=== PATIENT | male | born 1970 | race Caucasian/White ===

== ENCOUNTER 2024-11-17 17:10 | Emergency (ER) | payer OTHER, SELFPAY ==
[2024-11-17] VITALS (7 sets, daily range): BP systolic 139–187; BP diastolic 81–132; BMI 29.7
[2024-11-17 17:33] LABS: % Basophils 0.6 % (0-2); % Immature Granulocytes 0.4 % (0-0.5); % Lymphocytes 26.1 % (20.5-51.1); % Monocytes 7.6 % (1.7-9.3); % Neutrophils 63.3 % (42.2-75.2); Absolute Basophils 0.1 10^3/uL (0-0.2); Absolute Eosinophils 0.3 10^3/uL (0-0.7); Absolute Immature Granulocytes 0.1 10^3/uL (0-0.05); Absolute Lymphocytes 3.3 10^3/uL (1.2-3.4); Hematocrit 45.1 % (39.0-52.0); Hemoglobin 15.4 g/dL (13.0-18.0); Mean Corp Hgb Conc. 34.1 g/dL (33.0-37.0); Mean Corpuscular Volume 87.7 fL (80.0-94.0); Mean Platelet Volume 8.4 fL (7.4-10.4); Nucleated Red Blood Cells % 0 % (-); Platelet Count 288 10^3/uL (130-400); Red Blood Cell Count 5.14 10^6/uL (4.70-6.10); Red Cell Dist. Width 12.8 % (11.5-14.5); White Blood Cell Count 12.6 10^3/uL (4.8-10.8)
[2024-11-17 17:45] LABS: ALT (SGPT) 23 U/L (0-50); AST (SGOT) 21 U/L (17-59); Albumin 4.4 g/dl (3.5-5.0); Alkaline Phosphatase 62 U/L (38-126); Blood Urea Nitrogen 14 mg/dl (9-20); Calcium 9.6 mg/dl (8.4-10.2); Carbon Dioxide 26 mmol/L (22-30); Chloride 108 mmol/L (98-107); Estimated Creatinine Clearance 106 ml/min; Glucose 112 mg/dl (70-99); Potassium 4.4 mmol/L (3.5-5.1); Sodium 142 mmol/L (135-145); Total Bilirubin 0.8 mg/dl (0.2-1.3); Total Protein 7.1 g/dl (6.3-8.2); eGFR > 60.00
[2024-11-17 17:46] LABS: APTT 35.8 Sec (23.4-35.0); INR 1.04; PT 13.9 Sec (11.4-14.6)
[2024-11-17 17:58] LABS: NT-proBNP 26.3 pg/ml; Troponin I < 0.012 ng/ml
[2024-11-17] MEDS: TRANDATE 10 MG IV (18:37)
--- NOTE | 2024-11-17 18:48 | ED.GENMED ---
History of Present Illness
General
Chief Complaint: Blood Pressure Problem
Time Seen by Provider: 11/17/24 17:47
History of Present Illness
History of Present Illness:
54-year-old male with history of polysubstance abuse and hypertension presenting to the emergency department chest wall pain and elevated blood pressure. Patient presents from correctional facility for high blood pressure. Patient has been
detoxing from multiple substances for the past 2 days, getting clonidine and clonazepam. Patient reports since detoxing, has been having chest wall pain, sharp and dull in quality. Denies known history of cardiac disease, however does report
family history of heart disease. Denies fever or cough. Denies abdominal pain or GI symptoms. Does report some chills. Denies additional acute medical complaints
Phy Exam
Physical Exam
Physical Exam:
General: Well-appearing, no clinical signs of dehydration, nontoxic and in no acute distress
HEENT: protecting airway
Neck: appears supple
CV: Normal heart rate, regular rhythm
Resp: No accessory muscle use, no increased work of breathing, lungs clear to auscultation bilaterally
Abd: Soft and non-distended, no tenderness to palpation
Extremities: No deformities, no swelling, no erythema, pulses and sensation intact
Neuro: alert, no focal neurologic deficit
: deferred
Rectal: deferred
Psych: Normal affect
Skin: Intact
Scores
COW Clinical Opiate Withdrawal Scale
Resting Pulse Rate: 81-100
Sweating-over past 30min not from room temp or activity: Reports chills or flushing
Restlessness-observation during assessment: Able to sit still
Pupil Size: Pupils pinned or normal size for room light
Bone or Joint Aches: Not present
Runny Nose or Tearing-not accounted for by cold/allergies: Not present
GI Upset-over last 30min: No GI Symptoms
Tremor-observation of outstretched hands: No tremor
Yawning-observation during assessment: No yawning
Anxiety or Irritability: None
Gooseflesh Skin: Skin is smooth
Score: 2
Withdrawal Severity: Minimal Withdrawal
Heart Score for Chest Pain Patients
STEMI patient?: No
History: Slightly or Non-Suspicious
ECG: Normal
Age: >45 - <65 years
Risk Factors: 1 or 2 Risk Factors
Troponin: </= Normal Limit
Heart Score for Chest Pain Patients: 2
Heart Score Risk: 2.5% MACE over next 6 weeks
Course
Orders/Labs/Results
Orders:
Orders
11/17/24 17:18
Electrocardiogram (*1) Urgent
Reason for Study: Chest Pain
EKG- Treatment ONCE
11/17/24 17:21
Complete Blood Count/With Diff Urgent
Comprehensive Metabolic Panel Urgent
NT-proBNP Urgent
PTT Urgent
Prothrombin Time Urgent
Troponin I Urgent
11/17/24 17:23
CXR2 [CR Chest - 2 Views ] Urgent
Comment:
Reason For Exam: shortness of breath
11/17/24 18:22
Labetalol HCl [Trandate] 10 mg IV NOW STA
Abnormal Lab Results
11/17/24
17:21
WBC 12.6 H 10^3/uL
(4.8-10.8)
Abs Immat Gran (auto) 0.1 H 10^3/uL
(0-0.05)
Absolute Neuts (auto) 8.0 H 10^3/uL
(1.4-6.5)
Absolute Monos (auto) 1.0 H 10^3/uL
(0.1-0.6)
APTT 35.8 H Sec
(23.4-35.0)
Chloride 108 H mmol/L
(98-107)
Glucose 112 H mg/dl
(70-99)
11/17/24 17:21
11/17/24 17:21
Vital Signs
Initial and Last Documented VS:
Initial Vital Signs
Temp Pulse Resp BP Pulse Ox
98.1 F 110 32 178/112 96
11/17/24 17:13 11/17/24 17:13 11/17/24 17:13 11/17/24 17:13 11/17/24 17:13
Last Documented Vital Signs
Temp Pulse Resp BP Pulse Ox
98.6 F 85 26 146/92 98
11/17/24 17:26 11/17/24 19:15 11/17/24 19:15 11/17/24 19:00 11/17/24 19:15
MDM/Problems Addressed
MDM/Problems Addressed:
54-year-old male with history of polysubstance abuse and hypertension presenting to the emergency department for chest wall pain and high blood. Vital signs on arrival significant for high blood pressure.
On exam, patient resting comfortably, no acute distress or discomfort. EKG obtained, not present concern for ACS. Suspect symptoms are underlying current in detox. Patient is detoxing from multiple substances for the past 2 days, which is when
symptoms started. Suspect hypertension from underlying known diagnosis as well as concomitant withdrawal. Plan for laboratory analysis including troponin. Will director of player personnel labetalol for blood pressure control. Will obtain chest x-ray imaging.
19:30 - Labs are unremarkable. Blood pressure has improved with 1 dose of labetalol. At this time feel that patient is stable for discharge with continued management of his withdrawal, likely source of his presenting high blood pressure. Return
precautions discussed and patient verbalized understanding.
*EKG
Interpreted by ED Provider?: Yes
EKG Intrepretation Date: 11/17/24
EKG Intrepretation Time: 18:57
Interpretation: normal
Comparison EKG: no comparison EKG present
Heart Rate: 106
Rate: tachycardiac
Rhythm: sinus
[place]: normal axis
Interval: normal interval
QRS Pattern: normal QRS
Ischemia: non-specific ST changes
*Critical Care Note
Total Time (30-74mins, 75-104mins- exclusive of procedures): Not Applicable
ED Attending Note
-
Portions of this chart may have been created with voice recognition software.� Occasional wrong word or��sound alike� substitutions may have occurred due to the inherent limitations of voice recognition software.
Discharge Plan
Departure
Prescriptions:
No Action
lisinopril 30 mg Tablet
30 mg PO DAILY
Interventions
Interventions:
*Risk Screen - Suicide Last Done: 11/17/24 17:16
*General Assessment Last Done: 11/17/24 17:16
*Neglect/Abuse Screening Last Done: 11/17/24 17:16
*ED- Fall Risk Assessment Last Done: 11/17/24 17:26
*ED COVID-19 Vaccine History Last Done: 11/17/24 17:26
ED- Cardiac Assessment Last Done: 11/17/24 17:26
ED- Neurological Assessment Last Done: 11/17/24 17:26
ED- Pulmonary Assessment Last Done: 11/17/24 17:26
Discharge Date and Time
Print Language: SAUDI ARABIAN
== END 2024-11-17 20:13 | disposition home or self-care (01) ==
LOC: EMR 17:10
PROVIDERS: EMERGENCY PHYSICIAN Student in an Organized Health Care Education/Training Program
DX: R07.89 Other chest pain (principal); F19.11 Other psychoactive substance abuse, in remission; I10 Essential (primary) hypertension; Z82.49 Family history of ischemic heart disease and other diseases of the circulatory system
CPT/HCPCS: 99283; 96374; 71046; 80053; 83880; 84484; 85025; 85610; 85730; 93005

== ENCOUNTER 2024-11-18 20:31 | Inpatient (IN) | payer OTHER, SELFPAY ==
[2024-11-18] VITALS (8 sets, daily range): BP systolic 159–187; BP diastolic 100–150; BMI 29.3
[2024-11-18 17:12] LABS: % Basophils 0.7 % (0-2); % Eosinophils 1.6 % (0-6); % Immature Granulocytes 0.3 % (0-0.5); % Monocytes 8.2 % (1.7-9.3); % Neutrophils 64.2 % (42.2-75.2); Absolute Basophils 0.1 10^3/uL (0-0.2); Absolute Eosinophils 0.2 10^3/uL (0-0.7); Absolute Lymphocytes 2.9 10^3/uL (1.2-3.4); Absolute Monocytes 0.9 10^3/uL (0.1-0.6); Absolute Neutrophils 7.3 10^3/uL (1.4-6.5); Hematocrit 45.8 % (39.0-52.0); Hemoglobin 15.7 g/dL (13.0-18.0); Mean Corp Hgb Conc. 34.3 g/dL (33.0-37.0); Mean Corpuscular Hgb 30.3 pg (27.0-31.0); Mean Corpuscular Volume 88.2 fL (80.0-94.0); Mean Platelet Volume 8.6 fL (7.4-10.4); Nucleated Red Blood Cells % 0 % (-); Platelet Count 314 10^3/uL (130-400); Red Blood Cell Count 5.19 10^6/uL (4.70-6.10); Red Cell Dist. Width 12.5 % (11.5-14.5); White Blood Cell Count 11.4 10^3/uL (4.8-10.8)
[2024-11-18 17:26] LABS: ALT (SGPT) 24 U/L (0-50); AST (SGOT) 20 U/L (17-59); Albumin 4.4 g/dl (3.5-5.0); Alkaline Phosphatase 54 U/L (38-126); Blood Urea Nitrogen 11 mg/dl (9-20); Calcium 10.2 mg/dl (8.4-10.2); Carbon Dioxide 30 mmol/L (22-30); Chloride 105 mmol/L (98-107); Glucose 102 mg/dl (70-99); Potassium 4.8 mmol/L (3.5-5.1); Sodium 142 mmol/L (135-145); Total Bilirubin 1.1 mg/dl (0.2-1.3); Total Protein 7.2 g/dl (6.3-8.2); eGFR > 60.00
[2024-11-18 17:35] LABS: Troponin I < 0.012 ng/ml
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
[2024-11-18] MEDS: NICODERM TRANSDERMAL 21 MG TRANSDERM (18:04)
[2024-11-18 18:27] LABS: Amphetamines Positive (Negative); Barbiturates Negative (Negative); Benzodiazepines Negative (Negative); Buprenorphine Negative (Negative); Cocaine Negative (Negative); Marijuana Negative (Negative); Methadone Negative (Negative); Methamphetamines Positive (Negative); Opiates Negative (Negative); Phencyclidine Negative (Negative); Tricyclic Antidepressants Negative (Negative)
[2024-11-18] MEDS: BELBUCA 300 MCG BUCCAL (18:48)
[2024-11-18 18:59] LABS: Fentanyl, Urine Negative (Negative)
[2024-11-18] MEDS: ASPIRIN 325 MG PO (19:47)
[2024-11-18] MEDS: ZANAFLEX 8 MG PO (19:47)
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
[2024-11-19] MEDS: OXYCONTIN (CONTROLLED RELEASE) 40 MG PO ×2 (00:09→08:41)
[2024-11-19] MEDS: BELBUCA 300 MCG BUCCAL ×6 (00:09→20:04)
[2024-11-19] MEDS: SEROQUEL 50 MG PO ×2 (00:09→21:54)
[2024-11-19 06:45] LABS: HDL Cholesterol 27 mg/dl; LDL Cholesterol, Calculated 72 mg/dl; Total Cholesterol 120 mg/dl (50-199); Triglyceride 105 mg/dl (10-149); Very Low Density Lipoprotein 21 mg/dl (0-30)
[2024-11-19 07:28] LABS: Erythrocyte Sed Rate 8 mm/hour (0-20)
[2024-11-19 07:39] VITALS: BP 149/93
[2024-11-19 08:22] LABS: Glycohemoglobin (HgbA1c) 5.8 % (4.0-5.6)
[2024-11-19] MEDS: SEROQUEL 25 MG PO (08:41)
[2024-11-19] MEDS: ZESTRIL 30 MG PO (08:41)
[2024-11-19] MEDS: CATAPRES 0.1 MG PO ×2 (08:42→20:04)
--- NOTE | 2024-11-19 10:05 | VATNOTE ---
Pt. states the IV access currently in left arm was placed in the Emergency department.
--- NOTE | 2024-11-19 11:59 | W.PN.HOSP.TC ---
Today's Communication/Plan
-
Oversedated
Reduce standing dose of oxycodone
Continue Suboxone taper
Continue current antihypertensive regimen including clonidine. Monitor for recurrent bradycardia.
Assessment / Plan
Assessment / Plan
Impression
54-year-old with history of opioid abuse and chronic back pain with degenerative disc disease and foraminal disease presents to the emergency department with uncontrolled hypertension and a headache, last use of fentanyl was 3 days ago. Suspicion
is for fentanyl withdrawal as well as hypertensive urgency. He has a fixed pinpoint to mid dilated left pupil. Right pupil is reactive normally to bilateral stimulation. CT of the head is negative. CT of the lumbar spine shows known degenerative
disc disease with foraminal narrowing. There is no bladder or bowel incontinence.
Suspected opiate withdrawal
Hypertensive urgency
Conditions prior to admission
Essential hypertension
Spinal stenosis with chronic pain pain
Polysubstance abuse, reported opiates (snorting heroin/fentanyl) amphetamines/methamphetamines, tobacco use
Plan:
Polysubstance abuse with suspected opiate withdrawal
Patient states snorting daily fentanyl and heroin.
Injured his knee enough urine drug screen positive for amphetamines and methamphetamines and negative for opiates including fentanyl.
Initiated on opiate withdrawal protocol with microdosing of Suboxone.
Currently oversedated.
Will reduce standing dose of oxycodone by 50% down to 20 mg every 8 hours.
Continue tapering Suboxone overlapping with decreasing dose of oxycodone.
Monitor for oversedation.
Continue clonidine
Essential hypertension
Suspected hypertensive urgency in the settings of withdrawal.
ECG normal sinus rhythm
Telemetry with intermittent sinus bradycardia resolving with activity
Resume lisinopril 30 mg daily.
Initiated on clonidine as a part of withdrawal protocol. Monitor for recurrent bradycardia.
Reported blurry vision upon admission.
Bilateral blurry vision with minimally reactive left eye. Reports normal vision in both eyes. Suspect retinal artery/vein disease in that eye. Cannot get MRI. He states he has metal shavings in both eyes.
No focal findings on exam
Clinically less likely TIA/CVA
CT head with no acute abnormalities
Overall improved with BP control.
Currently no indication for additional neurologic workup. Monitor closely.
Spinal degenerative disease - chronic. Suspect foraminal narrowing are chronic and patient does not want intervention by anyone except his selected ortho/senior quality methods specialist
- pain control
- pt eval
- no mri
Anticipated Discharge: 24 - 48 hours
Subjective/Interval History
-
Date of Service: November 19, 2024
Objective Data
-
Vital Signs:
Vital Signs
Temp Pulse Resp BP Pulse Ox
97.5 F 75 18 149/93 98
11/19/24 07:39 11/19/24 08:41 11/19/24 07:39 11/19/24 08:41 11/19/24 07:39
Physical Exam
-
General: Well Developed and No Apparent Distress
HEENT: Normocephalic, Atraumatic and Moist Mucous Membranes
Respiratory: Clear to Auscultation
Cardiac: Regular Rhythm and S1/S2; Negative Murmur, Rub or Gallop
GI: Soft, Nontender, Nondistended and Normal Bowel Sounds; Negative Organomegaly
Rectal: Deferred by Provider
Musculoskeletal: No Clubbing, No Cyanosis and No Edema
Skin: Negative Rash
Neuro: Nonfocal/Grossly Intact and Other (oversedated)
--- NOTE | 2024-11-19 14:49 | CM ---
Reviewed the chart notes. Patient from [facility]. CM continues to be available to patient/family and is monitoring medical plan for needs at discharge.
Plan: Discharge back to [facility] when medically stable.
[2024-11-19 15:55] VITALS: BP 133/82
[2024-11-19] MEDS: OXYCONTIN (CONTROLLED RELEASE) 20 MG PO (17:03)
[2024-11-19 19:30] VITALS: BP 119/83
[2024-11-19] MEDS: SUBUTEX 2 MG SL (21:55)
[2024-11-19 23:25] VITALS: BP 123/81
[2024-11-20] MEDS: OXYCONTIN (CONTROLLED RELEASE) 20 MG PO (00:03)
[2024-11-20 03:11] VITALS: BP 126/71
[2024-11-20 07:45] VITALS: BP 127/76
[2024-11-20] MEDS: SUBUTEX 2 MG SL ×3 (08:26→17:36)
[2024-11-20] MEDS: ZESTRIL 30 MG PO (08:26)
[2024-11-20] MEDS: SEROQUEL 25 MG PO (08:27)
[2024-11-20] MEDS: CATAPRES 0.1 MG PO ×2 (08:27→19:53)
[2024-11-20 11:00] VITALS: BP 112/77
--- NOTE | 2024-11-20 11:55 | CM ---
Addendum entered by Lidia Washington RN 11/21/24 14:15:
Call report to: [phone]
Original Note:
Reviewed the chart notes. CM continues to be available to patient/family and is monitoring medical plan for needs at discharge.
Plan: [facility]charge back to [facility] when medically stable.
[2024-11-20] MEDS: NICODERM TRANSDERMAL 21 MG TRANSDERM (13:31)
--- NOTE | 2024-11-20 14:25 | W.PN.HOSP.TC ---
Today's Communication/Plan
-
Continue opiate withdrawal protocol increasing Subutex dose gradually and reducing oxycodone
Should be completely off oxycodone by tomorrow afternoon
Plan is to discharge back to halfway on Subutex with further titration.
Assessment / Plan
Assessment / Plan
Impression
54-year-old with history of opioid abuse and chronic back pain with degenerative disc disease and foraminal disease presents to the emergency department with uncontrolled hypertension and a headache, last use of fentanyl was 3 days ago. Suspicion
is for fentanyl withdrawal as well as hypertensive urgency. He has a fixed pinpoint to mid dilated left pupil. Right pupil is reactive normally to bilateral stimulation. CT of the head is negative. CT of the lumbar spine shows known degenerative
disc disease with foraminal narrowing. There is no bladder or bowel incontinence.
Suspected opiate withdrawal
Hypertensive urgency
Conditions prior to admission
Essential hypertension
Spinal stenosis with chronic pain pain
Polysubstance abuse, reported opiates (snorting heroin/fentanyl) amphetamines/methamphetamines, tobacco use
Plan:
Polysubstance abuse with suspected opiate withdrawal
Patient states snorting daily fentanyl and heroin.
Injured his knee enough urine drug screen positive for amphetamines and methamphetamines and negative for opiates including fentanyl.
Initiated on opiate withdrawal protocol with microdosing of Suboxone.
Not sedated and without symptoms of opiate withdrawal today.
Continue opiate withdrawal protocol increasing Subutex dose gradually with reducing oxycodone.
Continue clonidine
Essential hypertension
Suspected hypertensive urgency in the settings of withdrawal.
ECG normal sinus rhythm
Telemetry with intermittent sinus bradycardia resolving with activity
Resume lisinopril 30 mg daily.
Initiated on clonidine as a part of withdrawal protocol. Monitor for recurrent bradycardia.
Reported blurry vision upon admission.
Bilateral blurry vision with minimally reactive left eye. Reports normal vision in both eyes. Suspect retinal artery/vein disease in that eye. Cannot get MRI. He states he has metal shavings in both eyes.
No focal findings on exam
Clinically less likely TIA/CVA
CT head with no acute abnormalities
Overall improved with BP control.
Currently no indication for additional neurologic workup. Monitor closely.
Spinal degenerative disease - chronic. 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
- pain control
- pt eval
- no mri
Anticipated Discharge: Within 24 hours
Subjective/Interval History
-
Date of Service: November 20, 2024
Objective Data
-
Vital Signs:
Vital Signs
Temp Pulse Resp BP Pulse Ox
98.3 F 109 16 112/77 95
11/20/24 11:00 11/20/24 11:00 11/20/24 11:00 11/20/24 11:00 11/20/24 11:00
Physical Exam
-
General: Well Developed and No Apparent Distress
HEENT: Normocephalic, Atraumatic and Moist Mucous Membranes
Respiratory: Clear to Auscultation
Cardiac: Regular Rhythm and S1/S2; Negative Murmur, Rub or Gallop
GI: Soft, Nontender, Nondistended and Normal Bowel Sounds; Negative Organomegaly
Rectal: Deferred by Provider
Musculoskeletal: No Clubbing, No Cyanosis and No Edema
Skin: Negative Rash
Neuro: Nonfocal/Grossly Intact and Other (oversedated)
[2024-11-20 15:12] VITALS: BP 121/73
[2024-11-20] MEDS: ROXICODONE 20 MG PO (15:18)
[2024-11-20 19:52] VITALS: BP 140/88
[2024-11-20] MEDS: SEROQUEL 50 MG PO (21:40)
[2024-11-20] MEDS: SUBUTEX 4 MG SL (21:40)
[2024-11-20 23:15] VITALS: BP 134/86
[2024-11-20] MEDS: OXYCONTIN (CONTROLLED RELEASE) 10 MG PO (23:26)
[2024-11-21 03:25] VITALS: BP 148/88
[2024-11-21 07:37] VITALS: BP 154/97
[2024-11-21] MEDS: CATAPRES 0.1 MG PO (07:55)
[2024-11-21] MEDS: SUBUTEX 4 MG SL ×2 (07:55→13:21)
[2024-11-21] MEDS: OXYCONTIN (CONTROLLED RELEASE) 10 MG PO (07:56)
[2024-11-21] MEDS: NICODERM TRANSDERMAL TRANSDERM ×2 (07:56→09:36)
[2024-11-21] MEDS: SEROQUEL 25 MG PO (07:56)
[2024-11-21] MEDS: NICODERM TRANSDERMAL 14 MG TRANSDERM (09:36)
[2024-11-21] MEDS: ZESTRIL 30 MG PO (09:36)
[2024-11-21 11:14] VITALS: BP 109/70
[2024-11-21 16:12] VITALS: BP 148/74
== END 2024-11-21 18:48 | DRG 897 ==
LOC: 2 NORTH 20:31
PROVIDERS: Student in an Organized Health Care Education/Training Program; ADMITTING PHYSICIAN Internal Medicine; ATTENDING PHYSICIAN Internal Medicine; EMERGENCY PHYSICIAN Emergency Medicine
DX: F11.13 Opioid abuse with withdrawal (principal); I16.0 Hypertensive urgency; I10 Essential (primary) hypertension; G89.29 Other chronic pain; F17.210 Nicotine dependence, cigarettes, uncomplicated; F15.90 Other stimulant use, unspecified, uncomplicated; M48.07 Spinal stenosis, lumbosacral region; M43.07 Spondylolysis, lumbosacral region; Z79.82 Long term (current) use of aspirin
CPT/HCPCS: 70450; 72131; 80053; 80061; 80306; 80307; 83036; 84484; 85025; 85652; 87070; 93005; 99291

== ENCOUNTER 2024-11-23 21:05 | Emergency (ER) | payer OTHER, SELFPAY ==
[2024-11-23 21:14] VITALS: BP 129/92
[2024-11-23 21:17] VITALS: BP 129/92; BMI 30.1
[2024-11-23 21:34] LABS: % Basophils 0.4 % (0-2); % Eosinophils 4.8 % (0-6); % Immature Granulocytes 0.3 % (0-0.5); % Lymphocytes 25.4 % (20.5-51.1); % Monocytes 10.4 % (1.7-9.3); % Neutrophils 58.7 % (42.2-75.2); Absolute Eosinophils 0.5 10^3/uL (0-0.7); Absolute Lymphocytes 2.9 10^3/uL (1.2-3.4); Absolute Monocytes 1.2 10^3/uL (0.1-0.6); Absolute Neutrophils 6.6 10^3/uL (1.4-6.5); Hematocrit 38.5 % (39.0-52.0); Hemoglobin 13.8 g/dL (13.0-18.0); Mean Corp Hgb Conc. 35.8 g/dL (33.0-37.0); Mean Corpuscular Hgb 30.9 pg (27.0-31.0); Mean Corpuscular Volume 86.1 fL (80.0-94.0); Mean Platelet Volume 8.8 fL (7.4-10.4); Nucleated Red Blood Cells % 0 % (-); Platelet Count 257 10^3/uL (130-400); Red Blood Cell Count 4.47 10^6/uL (4.70-6.10); Red Cell Dist. Width 12.1 % (11.5-14.5); White Blood Cell Count 11.2 10^3/uL (4.8-10.8)
[2024-11-23 21:55] LABS: ALT (SGPT) 22 U/L (0-50); AST (SGOT) 29 U/L (17-59); Alkaline Phosphatase 54 U/L (38-126); Blood Urea Nitrogen 26 mg/dl (9-20); Calcium 9.5 mg/dl (8.4-10.2); Carbon Dioxide 27 mmol/L (22-30); Chloride 100 mmol/L (98-107); Estimated Creatinine Clearance 95 ml/min; Glucose 108 mg/dl (70-99); Potassium 4.6 mmol/L (3.5-5.1); Sodium 136 mmol/L (135-145); Total Protein 6.7 g/dl (6.3-8.2); eGFR > 60.00
[2024-11-23 21:57] LABS: Troponin I < 0.012 ng/ml
[2024-11-23 22:00] VITALS: BP 167/86
[2024-11-23 23:00] VITALS: BP 147/90
--- NOTE | 2024-11-23 23:41 | ED.GENMED ---
History of Present Illness
General
Chief Complaint: Chest Pain
Source: patient, records and police
Exam Limitations: none
Time Seen by Provider: 11/23/24 21:17
Nursing documentation reviewed up to this point in time: agreed with
History of Present Illness
History of Present Illness:
54-year-old male with a past medical history of hypertension, smoker, history of substance use, chronic back pain who presents to the emergency department from [facility] for evaluation of chest pain. Of note patient was
admitted to the hospital 11/18 until 11/21�he presented with hypertension and opioid withdrawal, was treated with Suboxone for opioid withdrawal and was treated with lisinopril and clonidine for blood pressure control. Patient says that
intermittently he has been having chest pains and that today he had a more intense episode which prompted referral to the ER. He says he was sitting in his cell when suddenly began to feel sweaty and had an intense pressure in his chest associated
with sensation of palpitations. He says he felt very short of breath. He says he called for CO who escorted him to the nurse and there he was found to be severely hypertensive. He was referred to the ER for assessment. He says that symptoms have
improved but not completely resolved, total duration few hours. He denies any known cardiac history.
Past History
Past History
ED Past Medical History: HTN and Other (Chronic low back pain)
ED Past Surgical History: Other
Social History
Tobacco: Smoker
Alcohol: Occasional
Drug: Other (Methamphetamine, fentanyl)
Personal: Other
Living: residential
Employment: Other
Family History
Family History: Other
Review of Systems
Review of Systems
All Other Systems: ROS reviewed and negative except as documented in HPI and ROS
Constitutional: Denies fever
Respiratory: Reports trouble breathing; Denies cough
Cardiac: Reports chest pain, diaphoresis and palpitations
ABD/GI: Denies abdominal pain, nausea or vomiting
Musculoskeletal: Denies edema
Phy Exam
Physical Exam
Physical Exam:
General: Awake, alert, oriented x3; no acute distress
Head: Normocephalic, atraumatic
Eyes: Conjunctiva normal, sclera anicteric
Throat: Airway intact, handling secretions
Neck: Trachea midline, no JVD
Lungs: Clear to auscultation bilaterally, no wheezing, rales, rhonchi
Heart: Regular rate and rhythm, no murmurs, gallops, or rubs
Abd: Soft, non distended, nontender
Neuro: No gross deficit
Extremities: No edema in extremities, equal pulses in all extremities
Scores
Heart Failure Risk
Heart Failure Risk Score: Not Applicable
Heart Score for Chest Pain Patients
STEMI patient?: No
History: Slightly or Non-Suspicious
ECG: Nonspecific Repolarization
Age: >45 - <65 years
Risk Factors: >/= 3 Risk Factors or History of CAD
Troponin: </= Normal Limit
Heart Score for Chest Pain Patients: 4
Heart Score Risk: 20.3% MACE over next 6 weeks
Withdrawal Assessment of Alcohol
Withdrawal Assessment Completed?: Not applicable
Course
Orders/Labs/Results
Orders:
Orders
11/23/24 21:09
Electrocardiogram (*1) Urgent
Reason for Study: Chest Pain
Cardiac Monitoring- Treatment ONCE
EKG- Treatment ONCE
IV Insert/Care/Rem.- Treatment PRN
Pulse Ox/spot Check [RESP] Urgent
Quantity: 1
Special Instructions: ON ROOM AIR
11/23/24 21:28
Complete Blood Count/With Diff Urgent
Comprehensive Metabolic Panel Urgent
Troponin I Urgent
11/24/24 00:[address]
Ct Chest/Abd/Pel Angio W/Wo Iv Urgent
Reason For Exam: sudden chest pain, hypertension
11/24/24 00:24
Troponin I Urgent
11/24/24 01:08
Electrocardiogram (*1) Urgent
Reason for Study: Chest Pain
EKG- Treatment ONCE
Abnormal Lab Results
11/23/24
21:28
WBC 11.2 H 10^3/uL
(4.8-10.8)
RBC 4.47 L 10^6/uL
(4.70-6.10)
Hct 38.5 L %
(39.0-52.0)
Absolute Neuts (auto) 6.6 H 10^3/uL
(1.4-6.5)
Absolute Monos (auto) 1.2 H 10^3/uL
(0.1-0.6)
Monocytes % 10.4 H %
(1.7-9.3)
BUN 26 H mg/dl
(9-20)
Glucose 108 H mg/dl
(70-99)
11/23/24 21:28
11/23/24 21:28
Vital Signs
Initial and Last Documented VS:
Initial Vital Signs
BP
129/92
11/23/24 21:14
Last Documented Vital Signs
Temp Pulse Resp BP Pulse Ox
37.2 C 93 12 141/83 93
11/23/24 21:17 11/24/24 01:15 11/24/24 01:15 11/24/24 01:08 11/24/24 01:15
MDM/Problems Addressed
Differential Diagnosis Includes:
ACS/angina, GERD, dysrhythmia; pneumothorax less likely, PE less likely, aortic dissection less likely
MDM/Problems Addressed:
54-year-old male presents for evaluation of chest pain which started at rest and lasted for few hours, was associated with shortness of breath, diaphoresis, palpitations. He did have recent admission for poorly controlled hypertension. He says his
blood pressure was over 200 earlier today; blood pressure normal here. Heart rate in the 90s, rest of vitals normal. His EKG shows no sinus rhythm. He does have some inferior and lateral T wave abnormalities�may be slightly more pronounced than
prior but generally morphology appears somewhat similar. He had lab work sent in triage including a CBC and a CMP which showed no clinically significant abnormalities. Initial troponin undetectable. With sudden onset and associated poorly
controlled hypertension we will check CT angio dissection study. Repeat EKG and troponin. Reassess after the above.
CT angio chest/abdomen/pelvis shows no dissection or PE or other acute abnormalities. Repeat troponin undetectable and with consistent symptoms this is sufficient to rule out acute ID. Symptoms nonexertional do not sound consistent with angina and
again consistent symptoms with undetectable troponins goes against cardiac chest pain. No changes on serial repeat EKG. Patient's vitals have been stable throughout ED visit. At this point no clear emergent pathology, think patient is stable for
discharge. Will have him follow-up with cardiology expeditiously as an outpatient for full assessment in an abundance of caution as he does have cardiac risk factors and incidentally noted atherosclerosis on CT chest. Discussed with patient
results and follow-up plan. Provided copy of CT for follow-up. I spoke to the residential medical staff directly to ensure that they facilitate follow-up. All questions answered.
Chronic conditions affecting care:
Hypertension, smoker
*Pulse Oximetry
Patient hypoxic: no
*EKG
Interpreted by ED Provider?: Yes
Comparison EKG: changes noted
Heart Rate: 101
Rate: tachycardiac
Rhythm: sinus
[place]: normal axis
Interval: normal interval
QRS Pattern: normal QRS
Ischemia: T-wave inversion
*Critical Care Note
Total Time (30-74mins, 75-104mins- exclusive of procedures): Not Applicable
Data Reviewed
Review of Other/Old Records Reveals: Labs and Records
Source: patient
Patient Management
Discussion with other providers: Assisted staff (Discussed directly with residential medical staff)
ED Attending Note
-
Portions of this chart may have been created with voice recognition software.� Occasional wrong word or��sound alike� substitutions may have occurred due to the inherent limitations of voice recognition software.
Discharge Plan
Departure
Patient Disposition: Home (Routine Discharge)
Date of Disposition: 11/24/24
Time of Disposition: 01:29
Patient with high blood pressure during this ER visit?: Yes
Discharge Problem:
Chest pain
Instructions: Chest Pain CBC Follow Up
Prescriptions:
No Action
lisinopril 30 mg Tablet
30 mg PO DAILY
quetiapine [Seroquel] 25 mg Tablet
25 mg PO DAILY
ondansetron HCl 4 mg Tablet
4 mg PO TIDPRN PRN (Reason: nausea)
loperamide 2 mg Tablet
2 mg PO TIDPRN PRN (Reason: diarrhea)
therapeutic multivitamin Tablet
1 tab PO DAILY
quetiapine [Seroquel] 50 mg Tablet
50 mg PO HS
buprenorphine HCl 8 mg Tablet, Sublingual
8 mg sublingual BID@0800,2000 Qty: 10 0RF
polyethylene glycol 3350 17 gram Powder In Packet
17 g PO DAILY PRN (Reason: constipation)
diphenhydramine HCl [Benadryl] 25 mg Capsule
25 mg PO BID
calcium carbonate [Calcium Antacid] 200 mg calcium (500 mg) Tablet,Chewable
1,000 mg PO BID
docusate sodium 100 mg Capsule
100 mg PO BID PRN (Reason: constipation)
Referrals:
[facility] [Family Provider] -
Bhupendra Faust MD [Active] - Call in 1-3 days for appt
Activity Restrictions/Additional Instructions:
You had multiple incidental findings on your CT and should follow-up with your primary doctor regarding these things. You have been referred to cardiology for full cardiac assessment after your ER visit. You should follow-up within the next week.
If you have any return of symptoms or worsening symptoms you should return to the ER to be reassessed.
Interventions
Interventions:
*Risk Screen - Suicide Last Done: 11/23/24 21:17
*General Assessment Last Done: 11/23/24 21:17
*Neglect/Abuse Screening Last Done: 11/23/24 21:17
*ED- Fall Risk Assessment Last Done: 11/23/24 21:17
*ED COVID-19 Vaccine History Last Done: 11/23/24 21:17
ED- Cardiac Assessment Last Done: 11/23/24 21:47
ED- Pulmonary Assessment Last Done: 11/23/24 21:47
Discharge Date and Time
Print Language: MALAY
[2024-11-24] VITALS: BP 133/75
[2024-11-24 00:59] LABS: Troponin I < 0.012 ng/ml
[2024-11-24 01:06] VITALS: BP 141/83
[2024-11-24 01:08] VITALS: BP 141/83
== END 2024-11-24 01:59 | disposition home or self-care (01) ==
LOC: EMR 21:05
PROVIDERS: EMERGENCY PHYSICIAN Emergency Medicine
DX: R07.89 Other chest pain (principal); I10 Essential (primary) hypertension; F17.200 Nicotine dependence, unspecified, uncomplicated
CPT/HCPCS: 99285; 71275; 74174; 80053; 84484; 85025; 93005; Q9967

== ENCOUNTER → 2025-01-01 06:41 | Outpatient (REF) | payer OTHER, SELFPAY ==
[2025-01-01] MEDS: LEXISCAN 0.4 MG IV (08:28)
[2025-01-01] MEDS: FLUSH (NSS) 1 FLUSH IV (08:28)
== END ==
LOC: RCS 06:41
PROVIDERS: ATTENDING PHYSICIAN Internal Medicine Cardiovascular Disease; FAMILY PHYSICIAN General Practice
DX: R07.89 Other chest pain (principal)
CPT/HCPCS: 78452; 93017; A9500; J2785

== ENCOUNTER 2025-02-07 06:07 | Observation (INO) | payer OTHER, SELFPAY ==
[2025-02-06 23:27] VITALS: BP 94/70
[2025-02-06 23:30] VITALS: BMI 30.2
[2025-02-06 23:36] VITALS: BP 104/80
[2025-02-06 23:52] LABS: Hematocrit 34.1 % (39.0-52.0); Hemoglobin 12.1 g/dL (13.0-18.0); Mean Corp Hgb Conc. 35.5 g/dL (33.0-37.0); Mean Corpuscular Volume 86.1 fL (80.0-94.0); Nucleated Red Blood Cells % 0 % (-); Platelet Count 275 10^3/uL (130-400); Red Cell Dist. Width 12.5 % (11.5-14.5)
[2025-02-06 23:57] VITALS: BP 89/67
[2025-02-07] VITALS (12 sets, daily range): BP systolic 90–150; BP diastolic 60–87; BMI 29.2
[2025-02-07 00:19] LABS: ALT (SGPT) 28 U/L (0-50); AST (SGOT) 26 U/L (17-59); Albumin 4.3 g/dl (3.5-5.0); Alkaline Phosphatase 59 U/L (38-126); Blood Urea Nitrogen 17 mg/dl (9-20); Calcium 9.7 mg/dl (8.4-10.2); Carbon Dioxide 27 mmol/L (22-30); Chloride 106 mmol/L (98-107); Estimated Creatinine Clearance 77 ml/min; Glucose 158 mg/dl (70-99); Potassium 4.1 mmol/L (3.5-5.1); Sodium 136 mmol/L (135-145); Total Protein 6.9 g/dl (6.3-8.2); eGFR > 60.00
[2025-02-07 00:32] LABS: Troponin I < 0.012 ng/ml
--- NOTE | 2025-02-07 01:32 | ED.GENMED ---
History of Present Illness
General
Chief Complaint: Chest Pain
Source: patient and records
Exam Limitations: none
Time Seen by Provider: 02/07/25 01:22
Nursing documentation reviewed up to this point in time: agreed with
History of Present Illness
History of Present Illness:
54-year-old male with a past medical history of hypertension, GERD, polysubstance use on buprenorphine who presents to the emergency room from [facility] for evaluation of chest pain. Patient reports acute onset of chest
pain this evening about 20 minutes prior to arrival while at rest. He reports an intense pressure sensation in the chest radiated towards the left side as well as some pain in the low back. He reports some mild associated shortness of breath. He
denies any nausea, vomiting, diaphoresis. He denies any abdominal pain. He says he was in his normal state of health prior to onset. EMS was called to the scene and per EMS report patient was severely hypertensive with a blood pressure over 200
and heart rate in the 110s. EKG showed sinus rhythm with no STEMI. I did review EKG from senior care and that did seem to show some lateral ST depressions. He was given a total of 3 sublingual nitroglycerin tabs with improvement in blood pressure and
resolution of pain. He was also given 324 mg of aspirin. He did apparently have some transient hypoxia which seems to have resolved. Transported to the emergency room. Here in the ER he says he is currently chest pain-free still has some mild
back pain. He says he has never had similar symptoms in the past and has no cardiac history to his knowledge.
Past History
Past History
ED Past Medical History: HTN and Other (Chronic low back pain)
ED Past Surgical History: Other
Social History
Tobacco: Smoker
Alcohol: Occasional
Drug: Other (Methamphetamine, fentanyl)
Personal: Other
Living: senior care
Employment: Other
Family History
Family History: Other
Review of Systems
Review of Systems
All Other Systems: ROS reviewed and negative except as documented in HPI and ROS
Constitutional: Denies fever
Respiratory: Reports trouble breathing
Cardiac: Reports chest pain; Denies diaphoresis or palpitations
ABD/GI: Denies abdominal pain, nausea or vomiting
: Denies flank pain
Musculoskeletal: Reports back pain; Denies neck pain
Neurological: Denies dizzy or headache
Phy Exam
Physical Exam
Physical Exam:
General: Awake, alert, oriented x3; no acute distress, resting comfortably in bed
Head: Normocephalic, atraumatic
Eyes: Conjunctiva normal, sclera anicteric
Throat: Airway intact, handling secretions
Neck: Trachea midline, no JVD
Lungs: Clear to auscultation bilaterally, no wheezing, rales, rhonchi
Heart: Regular rate and rhythm, no murmurs, gallops, or rubs�triage tachycardia resolved by my assessment
Abd: Soft, non distended, nontender
Neuro: No gross deficits
Skin: no rash
Extremities: No edema in extremities, no calf tenderness, equal pulses in all extremities
Scores
Heart Failure Risk
Heart Failure Risk Score: Not Applicable
Heart Score for Chest Pain Patients
STEMI patient?: No
History: Moderately Suspicious
ECG: Significant ST-Depression
Age: >45 - <65 years
Risk Factors: >/= 3 Risk Factors or History of CAD
Troponin: </= Normal Limit
Heart Score for Chest Pain Patients: 6
Heart Score Risk: 20.3% MACE over next 6 weeks
Withdrawal Assessment of Alcohol
Withdrawal Assessment Completed?: Not applicable
Course
Orders/Labs/Results
Orders:
Orders
02/06/25 23:22
Electrocardiogram (*1) Urgent
Reason for Study: Chest Pain
Cardiac Monitoring- Treatment ONCE
EKG- Treatment ONCE
IV Insert/Care/Rem.- Treatment PRN
O2 Therapy [RESP] Urgent
Titrate/Wean O2 to maintain O2 sat greater than (%): 90
Special Instructions: Maintain sats >/=90%
Pulse Ox/spot Check [RESP] Urgent
Quantity: 1
Special Instructions: ON ROOM AIR
02/06/25 23:45
BNP [NT-proBNP] Urgent
Complete Blood Count/With Diff Urgent
Comprehensive Metabolic Panel Urgent
Troponin I Urgent
02/07/25 01:24
CT Chest/abd/pelvis Angio W/wo Urgent
Comment:
Reason For Exam: severe HTN and chest pain
02/07/25 02:25
Troponin I Urgent
Abnormal Lab Results
02/06/25
23:45
RBC 3.96 L 10^6/uL
(4.70-6.10)
Hgb 12.1 L g/dL
(13.0-18.0)
Hct 34.1 L %
(39.0-52.0)
Abs Immat Gran (auto) 0.1 H 10^3/uL
(0-0.05)
Absolute Monos (auto) 0.7 H 10^3/uL
(0.1-0.6)
Immature Gran % 0.9 H %
(0-0.5)
Eosinophils % 8.5 H %
(0-6)
Glucose 158 H mg/dl
(70-99)
02/06/25 23:45
02/06/25 23:45
Vital Signs
Initial and Last Documented VS:
Initial Vital Signs
Pulse Resp BP Pulse Ox
111 14 94/70 97
02/06/25 23:27 02/06/25 23:27 02/06/25 23:27 02/06/25 23:27
Last Documented Vital Signs
Temp Pulse Resp BP Pulse Ox
36.6 C 75 14 109/72 94
02/06/25 23:40 02/07/25 03:15 02/07/25 03:15 02/07/25 03:02 02/07/25 03:15
MDM/Problems Addressed
Differential Diagnosis Includes:
ACS, aortic dissection, PE, GERD, costochondritis
MDM/Problems Addressed:
54-year-old male with history as noted presents for evaluation after an episode of acute onset chest pain associated with low back pain. Had associated severe hypertension and was treated with nitroglycerin and given a baby aspirin in the field.
Symptoms have resolved for the most part. His blood pressure is actually on the low side now 90s over 70s in triage. He had some tachycardia in triage which has normalized by my assessment, rest of vitals normal�apparently had some hypoxia for EMS
but is not hypoxic here. Physical exam is as above. His EKG here shows some inferior T wave inversions with some subtle ST depressions new compared to prior. He had blood work in triage including a CBC which was unremarkable and a CMP which
showed some mild hyperglycemia. His troponin was undetectable and he has normal proBNP. Given acute onset of symptoms with severe hypertension and back pain as well I think it would be appropriate to rule this patient out for aortic dissection
although certainly based on his clinical appearance I think this is less likely�will send for a CT angio of the chest/abdomen/pelvis. Will need to trend his troponins. He did have a nuclear stress test in December of this year that was normal. Will
monitor closely reassess after the above.
Repeat troponin was negative. CT angio of the chest/abdomen/pelvis reviewed and shows no signs of aortic dissection however he does have CAD with some mild cardiomegaly and there was some hypoattenuation in the myocardium which could reflect
myocardial infarction in the setting of chest pain. His troponins are negative but especially in light of EKG changes I do think it would be appropriate to observe overnight and trend troponins. Will start heparin empirically based on CT findings
pending trending of troponins. Fortunately he remains chest pain-free. Case discussed with hospitalist for admission.
Chronic conditions affecting care:
Hypertension
*Radiology
Radiology exam reviewed: radiology read reviewed
*Pulse Oximetry
SaO2: 93
Oxygen Mode of Delivery: Room air
Patient hypoxic: no (93%)
*EKG
Interpreted by ED Provider?: Yes
Comparison EKG: changes noted
Heart Rate: 104
Rate: tachycardiac
Rhythm: sinus tachycardia
[place]: normal axis
Interval: normal interval
QRS Pattern: normal QRS
Ischemia: non-specific ST changes
*Critical Care Note
Total Time (30-74mins, 75-104mins- exclusive of procedures): Not Applicable
Data Reviewed
Review of Other/Old Records Reveals: Labs, Records and Testing
Source: patient, records (Reviewed medical records from senior care and prior visits) and police
Patient Management
Discussion with other providers: Hospitalist (Discussed with hospitalist)
Escalation/DeEscalation of care consider admission/obs:
Admission indicated
ED Attending Note
-
Portions of this chart may have been created with voice recognition software.� Occasional wrong word or��sound alike� substitutions may have occurred due to the inherent limitations of voice recognition software.
Discharge Plan
Departure
Patient Disposition: Admit
Date of Disposition: 02/07/25
Time of Disposition: 04:00
Admit to doctor: Guy
Presentation/result/management discussed w/ accepting MD/DO: Hospitalist
Discharge Problem:
Chest pain
Prescriptions:
No Action
lisinopril 30 mg Tablet
30 mg PO DAILY
quetiapine [Seroquel] 25 mg Tablet
25 mg PO DAILY
ondansetron HCl 4 mg Tablet
4 mg PO TIDPRN PRN (Reason: nausea)
loperamide 2 mg Tablet
2 mg PO TIDPRN PRN (Reason: diarrhea)
therapeutic multivitamin Tablet
1 tab PO DAILY
quetiapine [Seroquel] 50 mg Tablet
50 mg PO HS
buprenorphine HCl 8 mg Tablet, Sublingual
8 mg sublingual BID@0800,2000 Qty: 10 0RF
polyethylene glycol 3350 17 gram Powder In Packet
17 g PO DAILY PRN (Reason: constipation)
diphenhydramine HCl [Benadryl] 25 mg Capsule
25 mg PO BID
calcium carbonate [Calcium Antacid] 200 mg calcium (500 mg) Tablet,Chewable
1,000 mg PO BID
docusate sodium 100 mg Capsule
100 mg PO BID PRN (Reason: constipation)
Referrals:
UNKNOWN - PT DOES,NOT KNOW [Family Provider]
Interventions
Interventions:
*Risk Screen - Suicide Last Done: 02/06/25 23:39
*General Assessment Last Done: 02/06/25 23:39
*Neglect/Abuse Screening Last Done: 02/06/25 23:39
*ED- Fall Risk Assessment Last Done: 02/06/25 23:39
*ED COVID-19 Vaccine History Last Done: 02/06/25 23:39
ED- Cardiac Assessment Last Done: 02/06/25 23:40
Discharge Date and Time
Print Language: DIVEHI
[2025-02-07 03:06] LABS: Troponin I < 0.012 ng/ml
[2025-02-07 04:35] LABS: APTT 40.5 Sec (23.4-35.0)
[2025-02-07] MEDS: HEPARIN 4000 UNITS IV (05:02)
[2025-02-07] MEDS: HEPARIN 25000 UNITS/250 ML IV (05:03)
--- NOTE | 2025-02-07 05:52 | HPS.HSE ---
Family Physician
-
Family Physician: NOT KNOW UNKNOWN - PT DOES
Chief Complaint
-
Chest Pain
History of Present Illness
Patient is a 54y M with PMH significant for hypertension and anxiety / depression who presents to ED complaining of chest pain. Patient states he woke from sleep this evening with sensation of nausea and chest pressure. He states that the
pressure radiated to his jaw. He denies any associated dyspnea. No emesis, diaphoresis, etc.
Patient states that he has had similar symptoms in the past which have been attributed to anxiety / panic attacks, hiatal hernia, etc.
EKG in the ED showed non-specific T wave changes in lateral leads compared to prior tracings.
Patient was started on IV heparin and referred for admission.
At the time of my examination he is sleeping comfortably. He is wakened easily and answers questions / follows commands.
Medical History
Past Medical History
Past Medical History: Reports Other
Additional Past Medical History:
Hypertension
Anxiety / Depression
Opioid Use Disorder
Past Surgical History: Reports None
Social History
Tobacco: Smoker
Alcohol: None
Drug: Narcotics
Personal: Single
Living: [facility]
Employment: Not Employed
Family History
Family History: Not pertinent
Allergies / Home Medications
Allergies reflects when Allergies were last updated in [facility].
Home Medications with original date entered in [facility]
Allergy/Medication List:
Allergies
Allergy/AdvReac Type Severity Reaction Status Date / Time
Penicillins Allergy Intermediate Swelling Verified 02/06/25 23:40
Home Medications
amlodipine 10 mg tablet 10 mg PO HS 02/07/25
aspirin 81 mg tablet,delayed release 81 mg PO DAILY 02/07/25
buprenorphine HCl 8 mg sublingual tablet 16 mg sublingual DAILY 02/07/25
cetirizine 10 mg tablet 10 mg PO HS 02/07/25
docusate sodium 100 mg tablet 100 mg PO BID PRN constipation 02/07/25
hydroxyzine HCl 50 mg tablet 50 mg PO TID 02/07/25
lisinopril 40 mg tablet 40 mg PO DAILY 02/07/25
mirtazapine 15 mg tablet 15 mg PO HS 02/07/25
multivitamin 1 tab PO DAILY 02/07/25
polyethylene glycol 3350 17 gram/dose oral powder (Miralax) 4 g PO DAILY PRN constipation 02/07/25
Review of Systems
-
History Source: Patient
A 12 point ROS was completed and negative except as noted: Yes
Constitutional: Denies Fever or Chills
Respiratory: Denies Cough or Trouble Breathing
Cardiac: Reports Chest Pain; Denies Palpitations
Abdomen/GI: Denies Abdominal Pain, Nausea, Vomiting or Diarrhea
: Denies Dysuria or Frequency
Neurological: Denies Dizzy or Headache
Physical Exam
Vital Signs
Vital Signs
Temp Pulse Resp BP Pulse Ox
97.8 F 66 12 108/71 95
02/06/25 23:40 02/07/25 05:00 02/07/25 05:00 02/07/25 05:00 02/07/25 05:00
Physical Exam
General: Other (54y M in no acute distress.)
HEENT: Moist mucous membranes and PERRLA
Respiratory: Clear; No Wheezes, Rales or Rhonchi
Cardiac: S1/S2 and Regular Rhythm; No Murmur
GI: Soft, Non Tender, Non Distended and Normal Bowel Sounds
Musculoskeletal: No Clubbing, No Cyanosis and No Edema
Neuro: AO x 3
Laboratory Results
-
02/06/25 23:45
02/06/25 23:45
Laboratory Results
APTT 40.5 Sec (23.4-35.0) H 02/07/25 04:10
Total Bilirubin 0.4 mg/dl (0.2-1.3) 02/06/25 23:45
AST 26 U/L (17-59) 02/06/25 23:45
ALT 28 U/L (0-50) 02/06/25 23:45
Alkaline Phosphatase 59 U/L (38-126) 02/06/25 23:45
Troponin I < 0.012 ng/ml 02/07/25 02:25
Impression/Plan
-
A/P: Patient is a 54y M with PMH significant for hypertension who presents to ED complaining of chest pain.
Atypical Chest Pain
- Observe overnight for further evaluation and treatment.
- Fairly low suspicion for ACS given undetectable troponin x 2 and recent unremarkable stress test (01/01/25).
- Continue IV heparin started in the ED for now pending Cardiology evaluation.
- Follow for any new / recurrent symptoms.
- PPI daily.
Benign Hypertension
- Stable. Well-controlled on current regimen.
Anxiety / Depression
- Continue current medications.
Opioid Use Disorder
- Continue current dose of buprenorphine daily.
DVT Prophylaxis: On IV heparin at present.
Code Status: Full
--- NOTE | 2025-02-07 08:02 | W.PN.HOSP.TC ---
Addendum entered and electronically signed by Lonnie Jimenez MD 02/07/25 16:32:
Cardiology asked me for GI to evaluate patient. Consulted GI
Original Note:
Today's Communication/Plan
-
Cardiology eval
Assessment / Plan
Assessment / Plan
Physical exam:
General: Well Developed, Well Nourished and No Apparent Distress
HEENT: Normocephalic, Atraumatic and Moist Mucous Membranes
Respiratory: Clear to Auscultation; Negative Wheezes, Rales or Rhonchi
Cardiac: Regular Rhythm and S1/S2
GI: Soft, Nontender and Nondistended
Musculoskeletal: No Clubbing, No Cyanosis and No Edema
Neuro: Awake, Alert and Oriented
Psych: Calm
A/P:
Chest Pain
- Cardiology consulted
-Mixed pattern but has risk factors of hypertension, smoking, family history.
- Undetectable troponin x 2 and reportedly recent unremarkable stress test (01/01/25).
- On IV heparin started in the ED
- Follow for any new / recurrent symptoms.
- PPI daily.
Benign Hypertension
- Stable. Well-controlled on current regimen.
Anxiety / Depression
- Continue current medications.
Opioid Use Disorder/ Polysubstance abuse
- Continue current dose of buprenorphine daily.
Smoker
- Advised to quit smoking
DVT Prophylaxis: On IV heparin at present.
Code Status: Full
Anticipated Discharge: 24 - 48 hours
Subjective/Interval History
-
Date of Service: February 07, 2025
Patient complains of chest pressure but much better. He is hungry. No shortness of breath.
Objective Data
-
Labs:
Laboratory Results
02/06/25 02/06/25 02/06/25
23:45 23:45 23:45
WBC 8.2 Cancelled
Hgb 12.1 L Cancelled
Hct 34.1 L
Plt Count
APTT
Sodium
Potassium
Chloride
Carbon Dioxide
BUN
Creatinine
Glucose
Calcium
Total Bilirubin
AST
ALT
Alkaline Phosphatase
02/06/25 02/06/25 02/07/25
23:45 23:45 04:10
WBC
Hgb
Hct Cancelled
Plt Count 275 Cancelled
APTT 40.5 H
Sodium 136
Potassium 4.1
Chloride 106
Carbon Dioxide 27
BUN 17
Creatinine 1.1
Glucose 158 H
Calcium 9.7
Total Bilirubin 0.4
AST 26
ALT 28
Alkaline Phosphatase 59
02/07/25
11:10
WBC
Hgb
Hct
Plt Count
APTT Pending
Sodium
Potassium
Chloride
Carbon Dioxide
BUN
Creatinine
Glucose
Calcium
Total Bilirubin
AST
ALT
Alkaline Phosphatase
Vital Signs:
Vital Signs
Temp Pulse Resp BP Pulse Ox
97.8 F 70 21 94/65 95
02/06/25 23:40 02/07/25 06:30 02/07/25 06:30 02/07/25 06:00 02/07/25 06:30
[2025-02-07] MEDS: PROTONIX 40 MG PO ×2 (08:32→20:22)
[2025-02-07] MEDS: ASPIR LOW (ENTERIC COATED) 81 MG PO (08:32)
[2025-02-07] MEDS: SUBUTEX 16 MG SL (08:32)
[2025-02-07 08:33] LABS: Glucose - Point of Care 98 mg/dl (70-99)
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
--- NOTE | 2025-02-07 10:41 | CON.CAR ---
Addendum entered and electronically signed by Luis Alberto Brambila MD 02/07/25 13:41:
I saw and examined the patient.
The MOLD STAMPER AND REPAIRER's note was reviewed and I agree with the note.
54-year-old male with a history of hypertension and substance abuse who is currently incarcerated and presents with chest discomfort. Patient had previously been seen for assessment of chest discomfort with negative troponins. Evaluation included
a CT which was negative for PE 11/24/2024 there was some coronary calcification reported on that study. He then had a Lexiscan nuclear perfusion stress test 01/01/2025. Normal perfusion with no defects to suggest myocardial ischemia or prior infarct
ejection fraction 56%. He presents with chest discomfort which started last night midsternal discomfort without clear associated symptoms no GI symptoms or respiratory symptoms symptoms have been persistent. He has had some mild reduction since
being in the hospital despite prolonged symptoms troponins have been negative. CT of the chest abdomen and pelvis today without clear etiology radiologist did report an area of hypoattenuation in the wall of the myocardium which may be artifactual
although an area of infarction cannot be excluded coronary calcification was noted as it was on the previous study a stable 0.4 cm right lung nodule was also reported ECG shows sinus rhythm with nonspecific ST abnormality which is similar to prior
ECGs. Labs also notable for mild anemia with a hemoglobin of 12.1 which is a reduction when compared to 11/23/2024
Exam notable for systolic murmur but otherwise unremarkable. Outpatient echo had been ordered reportedly was done but results are not available
-
#Chest discomfort. Etiology unclear with prolonged symptoms and negative troponins it makes coronary ischemia unlikely. Patient does have some evidence of coronary calcification. ECG with nonspecific ST/T abnormality which is unchanged from prior
ECGs. Although cardiac causes are a consideration would also consider noncardiac and GI causes of note patient does have some mild anemia possibility of peptic ulcer disease is a consideration
- Echocardiogram
- PPI
- Will review CT findings with radiology
- Consider GI assessment
- Additional assessment after the above issues test have been reviewed
.
# Anemia. Treatment as directed by primary team
.
# Hypertension. Stable continue current therapy
Original Note:
Consultation
Consultation Request
Date/Time Consultation Requested: 02/07/25 0819
Date/Time Consultation Performed: 02/07/25 1100
Requesting Provider: Dr. Tovar
Performing Provider: Summer PÉREZ for Dr. Brambila
Reason for Consultation: Chest discomfort
Medical History
-
Chief Complaint: chest discomfort
History of Present Illness:
54 y/o male (cardiology patient of Dr. Brambila) with hypertension, smoking, and substance abuse who is here for evaluation of chest discomfort that started last night around 10:30 PM while he was laying and felt like left-sided pressure. There was
associated pounding. It all started after he heard a noise. It has been present since then, but is currently mild. Not worse with inspiration or palpation. Per report, his SBP was quite high at the time, though has been on low end here. He did
receive nitros. He is in no distress at the time of my assessment. His lives at [facility] and two officers are present at the time of my assessment. Last drug use was about 3 months ago (methamphetamines/fentanyl). Of note, this is the same pain that led
to recent normal stress test. Nothing makes it better or worse. Seems to happen once every few weeks. EKG ST with NS ST abnormality- no acute change to my review.
Past Medical History
Past Medical History: HTN
Social History
Tobacco: Smoker (1 PPD)
Drug: Former User (last use 3 months ago (methamphetamines and fentanyl))
Living: [facility]
Family History
Family History: CAD (dad bypass 55)
Allergies / Home Medications
Allergy/AdvReac Type Severity Reaction Status Date / Time
Penicillins Allergy Intermediate Swelling Verified 02/06/25 23:40
�Medication �Instructions �Recorded �Confirmed �Type
amlodipine 10 mg tablet 10 mg PO HS 02/07/25 02/07/25 History
aspirin 81 mg tablet,delayed 81 mg PO DAILY 02/07/25 02/07/25 History
release
buprenorphine HCl 8 mg sublingual 16 mg sublingual DAILY 02/07/25 02/07/25 History
tablet
cetirizine 10 mg tablet 10 mg PO HS 02/07/25 02/07/25 History
docusate sodium 100 mg tablet 100 mg PO BID PRN constipation 02/07/25 02/07/25 History
hydroxyzine HCl 50 mg tablet 50 mg PO TID 02/07/25 02/07/25 History
lisinopril 40 mg tablet 40 mg PO DAILY 02/07/25 02/07/25 History
mirtazapine 15 mg tablet 15 mg PO HS 02/07/25 02/07/25 History
multivitamin 1 tab PO DAILY 02/07/25 02/07/25 History
polyethylene glycol 3350 17 4 g PO DAILY PRN constipation 02/07/25 02/07/25 History
gram/dose oral powder (Miralax)
Review of Systems
-
History Source: Patient
All other systems: Negative unless noted
Cardiac: Chest Pain
Physical Exam
Vital Signs
Temp Pulse Resp BP Pulse Ox
97.8 F 67 18 144/80 98
02/07/25 08:00 02/07/25 08:00 02/07/25 08:00 02/07/25 08:00 02/07/25 08:47
Lab Results
02/06/25 23:45
02/06/25 23:45
Troponin I < 0.012 ng/ml 02/07/25 02:25
Soe-D-Zpfrombdiei Pept 46.3 pg/ml 02/06/25 23:45
Physical Exam
General: Well Developed, Well Nourished and No Apparent Distress
HEENT: Normocephalic and Anicteric
Respiratory: Clear and Non Labored Respirations
Cardiac: Regular Rhythm and Murmur (II/ systolic murmur)
Musculoskeletal: No Edema
Skin: Warm
Neuro: AO x 3
Psych: Calm
Impression / Plan
-
Chest discomfort: etiology unclear
-patient with constant CP since 10:30 PM with 3 normal trops. However, risk factors for CAD include- HTN, fam history, smoking, and CT findings as below. Will discuss case with Dr. Brambila.
-Recent stress test 01/01/[address] scan: No findings to confirm thoracic/abdominal aortic aneurysm or dissection, evaluation of the thoracic aorta is somewhat limited by artifact. Coronary artery calcifications noted. Area of
hypoattenuation wall of the myocardium which may be artifactual although cannot exclude myocardial infarction. Stable 0.4 cm right lung nodule.
-he thinks he had a recent echo done- results unknown, has II/ systolic murmur. I tried to call [facility] to get more info on this, but was unable to speak with someone. Records requested order in. However, should get one here with CP as described.
-PPI added by primary team
-currently on heparin drip, which requires intensive monitoring- continue for now
HTN:
-continue meds and monitor
Smoking:
-would benefit from cessation
Hx drug abuse:
-remain drug free
-on meds
Data Reviewed
-
EKG: Tracing Personally Visualized and interpreted (ST at 104 B[address])
CT Scan: Report Reviewed by me (CT scan: No findings to confirm thoracic/abdominal aortic aneurysm or dissection, evaluation of the thoracic aorta is somewhat limited by artifact. Coronary artery calcifications noted. Area of hypoattenuation wall
of the myocardium which may be artifactual although cannot exclude NE)
Medical Tests (Nuc Med, Echo etc): Other (echo ordered)
Labs: Labs Reviewed by me
--- NOTE | 2025-02-07 10:50 | CM ---
CM following re: discharge planning.
Reviewed pt's chart, met with pt. Two guards at bedside.
Pt is a 54 year old male, admitted with primary dx of Chest pain. pt is admitted from [facility] and per guards pt will return back to [facility] when medically stable.
[facility] nursing report: [phone]
Discharge instructions fax: [phone]
D/C plan: return back to [facility] when medically stable.
CM will follow with discharge plan updates as needed.
[2025-02-07 11:17] LABS: APTT 106.1 Sec (23.4-35.0)
[2025-02-07 13:07] LABS: Glucose - Point of Care 94 mg/dl (70-99)
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
[2025-02-07] MEDS: ATARAX 50 MG PO ×2 (17:04→23:37)
[2025-02-07 17:10] LABS: Glucose - Point of Care 118 mg/dl (70-99)
[2025-02-07 19:39] LABS: APTT 96.8 Sec (23.4-35.0)
[2025-02-07] MEDS: CARAFATE 1 GRAM PO (20:22)
[2025-02-07] MEDS: NORVASC 10 MG PO (23:36)
[2025-02-07] MEDS: ZYRTEC 10 MG PO (23:36)
[2025-02-07] MEDS: REMERON 15 MG PO (23:37)
[2025-02-08] VITALS (11 sets, daily range): BP systolic 97–138; BP diastolic 59–85; BMI 29.2
[2025-02-08] MEDS: HEPARIN 25000 UNITS/250 ML IV (01:28)
[2025-02-08 01:57] LABS: Glucose - Point of Care 105 mg/dl (70-99)
[2025-02-08 06:26] LABS: Hematocrit 40.4 % (39.0-52.0); Hemoglobin 13.6 g/dL (13.0-18.0); Mean Corp Hgb Conc. 33.7 g/dL (33.0-37.0); Mean Corpuscular Volume 90.0 fL (80.0-94.0); Platelet Count 307 10^3/uL (130-400); Red Cell Dist. Width 12.8 % (11.5-14.5)
[2025-02-08 06:40] LABS: APTT 115.3 Sec (23.4-35.0)
[2025-02-08 06:52] LABS: Blood Urea Nitrogen 24 mg/dl (9-20); Calcium 9.9 mg/dl (8.4-10.2); Carbon Dioxide 28 mmol/L (22-30); Chloride 104 mmol/L (98-107); Estimated Creatinine Clearance 87 ml/min; Glucose 97 mg/dl (70-99); HDL Cholesterol 46 mg/dl; LDL Cholesterol, Calculated 98 mg/dl; Potassium 4.7 mmol/L (3.5-5.1); Sodium 137 mmol/L (135-145); Very Low Density Lipoprotein 23 mg/dl (0-30); eGFR > 60.00
[2025-02-08 07:03] LABS: Troponin I < 0.012 ng/ml
[2025-02-08 07:25] LABS: Glucose - Point of Care 84 mg/dl (70-99)
[2025-02-08] MEDS: SUBUTEX 16 MG SL (08:08)
[2025-02-08] MEDS: PROTONIX 40 MG PO ×2 (08:08→20:26)
[2025-02-08] MEDS: ATARAX 50 MG PO ×3 (08:09→22:02)
[2025-02-08] MEDS: ASPIR LOW (ENTERIC COATED) 81 MG PO (08:09)
[2025-02-08] MEDS: ZESTRIL 40 MG PO (08:09)
[2025-02-08] MEDS: CARAFATE PO (08:10)
--- NOTE | 2025-02-08 09:35 | W.PN.CD ---
Today's Communication / Plan
-
CP- troponin negative
- appreciate GI input
-etiology unclear. Patient with continued complaintsof chest pain. still with some discomfort this morning. Still with complaints depite optimizationoif Gi therapy. patietn with significant coronary calcificationon CT. Considering all the above I
discussed cardiac cath to further assess fo obstructive CAD. patietnin agree ment plan for cath
Impression / Plan
-
Chest discomfort: etiology unclear
-patient with prolonged with normal trops. However, risk factors for CAD include- HTN, fam history, smoking, Coronary calcification on CT and Ct findings below
-Recent stress test 01/01/[address] scan: No findings to confirm thoracic/abdominal aortic aneurysm or dissection, evaluation of the thoracic aorta is somewhat limited by artifact. Coronary artery calcifications noted. Area of
hypoattenuation wall of the myocardium which may be artifactual although cannot exclude myocardial infarction. Stable 0.4 cm right lung nodule. ( I reviewd [facility] radiology reported abnormality in myocardium may be artifact. There appears to be
sigificna coronary cancification in all 3 coronary arteries
- echo 02/08/25 with normal LV function. Aorrtic valve with possible mild
- GI consulted - consultsants flet low liklihood of GI symptoms but hey optimized PPI tx and added carafate
HTN:
-continue meds and monitor
Smoking:
-would benefit from cessation
Hx drug abuse:
-remain drug free
-on meds
Physical Exam
Vital Signs/Labs
Vital Signs
Temp Pulse Resp BP Pulse Ox
98.2 F 83 16 138/85 96
02/08/25 07:20 02/08/25 08:09 02/08/25 07:20 02/08/25 08:09 02/08/25 07:20
02/07/25 02/08/25 02/09/25
06:59 06:59 06:59
Actual Weight 84.7 kg 84.414 kg
02/08/25 06:12
02/08/25 06:12
APTT 115.3 Sec (23.4-35.0) H 02/08/25 06:12
Triglycerides 117 mg/dl (10-149) 02/08/25 06:12
LDL Cholesterol, Calc 98 mg/dl 02/08/25 06:12
VLDL Cholesterol, Calc 23 mg/dl (0-30) 02/08/25 06:12
HDL Cholesterol 46 mg/dl 02/08/25 06:12
02/06/25
23:45
Hmz-F-Rfamtakmvss Pept 46.3
LAB Results
02/06/25 02/07/25 02/08/25
23:45 02:25 06:12
Troponin I < 0.012 < 0.012 < 0.012
Physical Exam
Constitutional: No acute distress
Cardiovascular: Rhythm & rate is regular and Systolic murmur present
Respiratory: Respiratory effort normal
GI: Soft
Neuro/Psych: Alert
Data Reviewed
-
Date of Service: February 08, 2025
Medical Decision Making: Reviewed Test Results
X-Ray/CT/US/MRI/NUC/PET: Report Reviewed by me
Medical Tests (PFT, Pathology etc): Report Reviewed by me
Labs: Labs Reviewed by me
--- NOTE | 2025-02-08 09:57 | W.PN.GI.CBS2 ---
Today's Communication / Plan
-
PPI daily
Tolerating regular diet
OP GI FU and can consider elective EGD
Assessment / Plan
-
Pt is a 54yo with hx HTN, opioid dependence with chronic back pain, GERD with TUMs PRN, kidney stones, hiatal hernia, depression/anxiety per chart recent incarceration with last drug use 2 1/2 months ago when admitted to assisted now prior to
complaints of chest pain with shortness of breath. In review with patient this is second episode of pain. He was admitted 11/18-11/21 with opiate withdrawal and HTN urgency. He then presented with first episode of chest pain 11/23 with ER evaluation.
During that visit was noted with neg troponin and referred to OP cardiology and had recent Lexiscan that was normal. He now present with current chest pain with pain in mid chest radiation to left side. Pt states feeling of heaviness in chest. No
change with eating and improved with nitro. Prior to admission he had marked HTN and tachycardia with ST changes but then hypotension after admission. He did complete CTA on admission with no dissection,and noted hypoattenuation of wall of
myocardium artificial cannot exclude DC and stable lung nodule. Pt was stated on IV heparin on admission. He does state slightly similar to pain with prior EGD in past with HH but denies worsening GERD or NSAID use. Appetite has been good. Pt
with stable hbg was hbg 13.8 in November then 12.1 on repeat admission with normal MCV.
Impression
-chest pain - atypical
-GERD/HH
-HTN then hypotension
- opioid dependence/polysubstance abuse with chronic back pain
- kidney stones
-depression/anxiety
PLAN:
Anemia resolved
He is eating 100% of regular diet last night without any issues
No reflux, heartburn or abd pain on PPI. CP improved
At this juncture c/w protonix 40mg daily
Diet modifications discussed
He could see GI oupatient basis for EGD for BE screening
Ok from GI perspective for hosp d/c. GI will sign off please call for ?
Subjective
Subjective
Date of Service: February 08, 2025
He ate pot roast and regular diet without issues. CP much improved.
Objective
Data Reviewed
Laboratory Data:
Laboratory Results
02/08/25 06:12
02/08/25 06:12
Laboratory Results
APTT 115.3 Sec (23.4-35.0) H 02/08/25 06:12
Total Bilirubin 0.4 mg/dl (0.2-1.3) 02/06/25 23:45
AST 26 U/L (17-59) 02/06/25 23:45
ALT 28 U/L (0-50) 02/06/25 23:45
Alkaline Phosphatase 59 U/L (38-126) 02/06/25 23:45
Vital Signs and I&O:
Vital Signs
Temp Pulse Resp BP Pulse Ox
98.2 F 83 16 138/85 96
02/08/25 07:20 02/08/25 08:09 02/08/25 07:20 02/08/25 08:09 02/08/25 07:20
I&O
02/07/25 02/08/25 02/09/25
06:59 06:59 06:59
Intake Total 1120 / 1120
Balance 1120 / 1120
Physical Exam
Physical Exam
GEN: No acute distress, conversant, pleasant
HEENT: anicteric, extraocular movements intact, clear oropharynx without exudates
GI: soft, non-distended, not tender to palpation, obese periumbilical hernia, normal active bowel sounds, no hepatosplenomegaly
EXT: warm, well perfused, no edema bilaterally
NEURO: AAOx3, non-focal
--- NOTE | 2025-02-08 10:49 | W.PN.HOSP.TC ---
Today's Communication/Plan
-
Cardiac cath today
Assessment / Plan
Assessment / Plan
Physical exam:
General: Well Developed, Well Nourished and No Apparent Distress
HEENT: Normocephalic, Atraumatic and Moist Mucous Membranes
Respiratory: Clear to Auscultation; Negative Wheezes, Rales or Rhonchi
Cardiac: Regular Rhythm and S1/S2
GI: Soft, Nontender and Nondistended
Musculoskeletal: No Clubbing, No Cyanosis and No Edema
Neuro: Awake, Alert and Oriented
Psych: Calm
A/P:
Chest Pain
- Cardiology consulted
-Mixed pattern but has risk factors of hypertension, smoking, family history.
- Undetectable troponin and reportedly recent unremarkable stress test (01/01/25).
- On IV heparin started in the ED
- Follow for any new / recurrent symptoms.
- PPI daily+sucralfate.
- GI evaluated patient after cardiology request and no need for inpatient GI workup and can consider outpatient.
- Discussed with cardiology today and plan for cardiac cath
Benign Hypertension
- Stable. Well-controlled on current regimen.
Anxiety / Depression
- Continue current medications.
Opioid Use Disorder/ Polysubstance abuse
- Continue current dose of buprenorphine daily.
Smoker
- Advised to quit smoking
DVT Prophylaxis: On IV heparin at present.
Code Status: Full
Anticipated Discharge: Today
Subjective/Interval History
-
Date of Service: February 08, 2025
Patient feels better overall. Still having some chest discomfort but less intense. No shortness of breath
Objective Data
-
Labs:
Laboratory Results
02/08/25 02/08/25
06:12 13:40
WBC 8.8
Hgb 13.6
Hct 40.4
Plt Count 307
APTT 115.3 H Pending
Sodium 137
Potassium 4.7
Chloride 104
Carbon Dioxide 28
BUN 24 H
Creatinine 0.9
Glucose 97
Calcium 9.9
Vital Signs:
Vital Signs
Temp Pulse Resp BP Pulse Ox
98.2 F 83 16 138/85 96
02/08/25 07:20 02/08/25 08:09 02/08/25 07:20 02/08/25 08:09 02/08/25 07:20
I&O
02/07/25 02/08/25 02/09/25
06:59 06:59 06:59
Intake Total 1120 / 1120
Balance 1120 / 1120
[2025-02-08 11:26] LABS: Glycohemoglobin (HgbA1c) 5.9 % (4.0-5.6)
[2025-02-08 13:21] LABS: Glucose - Point of Care 96 mg/dl (70-99)
[2025-02-08 14:17] LABS: APTT 83.1 Sec (23.4-35.0)
--- NOTE | 2025-02-08 15:04 | CM ---
CM following re: discharge planning.
Reviewed pt's chart, met with pt. Two guards at bedside.
Per chart review, cardiac cath today, continue supportive care.
[facility] nursing report: [phone]
Discharge instructions fax: [phone]
D/C plan: return back to [facility] when medically stable. Guards to transport.
CM will follow with discharge plan updates as needed.
[2025-02-08 16:43] LABS: Glucose - Point of Care 90 mg/dl (70-99)
--- NOTE | 2025-02-08 18:41 | ITS.CL.PN ---
Clinical Nurse - Procedure Note
Procedure
Procedure Note:
CARDIAC CATHETERIZATION REPORT
Date of Procedure: 02/08/2025
Referring: Dr. Luis Alberto Brambila MD
Indication: anginal chest pain
PROCEDURE(S)
1. left heart catheterization
2. coronary angiography
ACCESS: 6F right radial artery (closure: radial band)
CATHETERS
1. 6F JR4
2. 6F JL3.5
MODERATE SEDATION: 25 minutes of moderate sedation was utilized. An independent chief medical physicist was present to assist with and help manage the patient's level of consciousness and physiologic status.
HEMODYNAMIC DATA
LV 127/5 (EDP 10) mmHg
AO 115/83 (mean 98) mmHg
CORONARY ANGIOGRAPHY
Dominance: right
LM: Large vessel with mild calcific disease.
LAD: Large vessel giving rise to a moderate caliber high rising D1 and several smaller diagonal branches. There is mild diffuse disease.
LCx: Large vessel giving rise to a moderate caliber OM1, small OM2, large LPL, and small LPDA. There is mild diffuse disease.
RCA: Large vessel giving rise to a moderate caliber RPDA and several small RPL branches. There is mild diffuse disease.
RADIATION: dose 388 mGy; DAP 22 Gy*cm2; fluoroscopy time 3.9 min
CONCLUSIONS
1. Nonobstructive coronary artery disease in a right dominant system as described
2. Normal LV filling pressure and no significant gradient across aortic valve on hemodynamic pullback.
RECOMMENDATIONS
1. Secondary prevention of coronary artery disease
2. Stop heparin
3. Workup for etiology of chest pain not related to epicardial coronary artery disease
Signed: Lan Lerma MD, PhD
--- NOTE | 2025-02-08 19:21 | PTCARENOTE ---
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 VSS. TR band CDI. Cath check started. Heparin gtt d/c in the poultry hatchery laborer. Patient AAOx3 and educated on protocol.
[2025-02-08] MEDS: CARAFATE 1 GRAM PO (20:26)
[2025-02-08 21:59] LABS: Glucose - Point of Care 104 mg/dl (70-99)
[2025-02-08] MEDS: ZYRTEC 10 MG PO (22:00)
[2025-02-08] MEDS: REMERON 15 MG PO (22:01)
[2025-02-08] MEDS: NORVASC 10 MG PO (22:01)
[2025-02-09 03:35] VITALS: BP 113/73
[2025-02-09 06:00] VITALS: BMI 29.2
[2025-02-09 07:00] VITALS: BP 120/72
[2025-02-09] MEDS: ASPIR LOW (ENTERIC COATED) 81 MG PO (08:21)
[2025-02-09] MEDS: ATARAX 50 MG PO (08:21)
[2025-02-09] MEDS: SUBUTEX 16 MG SL (08:21)
[2025-02-09] MEDS: CARAFATE 1 GRAM PO (08:21)
[2025-02-09] MEDS: PROTONIX 40 MG PO (08:21)
[2025-02-09] MEDS: ZESTRIL 40 MG PO (08:21)
[2025-02-09 08:39] LABS: Glucose - Point of Care 110 mg/dl (70-99)
--- NOTE | 2025-02-09 09:46 | W.PN.HOSP.TC ---
Today's Communication/Plan
-
Discharge planning
Assessment / Plan
Assessment / Plan
Physical exam:
General: Well Developed, Well Nourished and No Apparent Distress
HEENT: Normocephalic, Atraumatic and Moist Mucous Membranes
Respiratory: Clear to Auscultation; Negative Wheezes, Rales or Rhonchi
Cardiac: Regular Rhythm and S1/S2
GI: Soft, Nontender and Nondistended
Musculoskeletal: No Clubbing, No Cyanosis and No Edema
Neuro: Awake, Alert and Oriented
Psych: Calm
A/P:
Chest Pain
- Cardiology consulted
-Mixed pattern but has risk factors of hypertension, smoking, family history.
- Undetectable troponin and reportedly recent unremarkable stress test (01/01/25).
- PPI daily+sucralfate.
- GI evaluated patient after cardiology request and no need for inpatient GI workup and can consider outpatient.
-Patient underwent cardiac cath last evening and no significant obstructive CAD. Discussed with cardiology today. Cardiology recommended continuing aspirin, low-dose statins, JANY inhibitor and cleared him for discharge.
- Plan to discharge today
Benign Hypertension
- Stable. Well-controlled on current regimen.
Anxiety / Depression
- Continue current medications.
Opioid Use Disorder/ Polysubstance abuse
- Continue current dose of buprenorphine daily.
Smoker
- Advised to quit smoking
DVT Prophylaxis: On IV heparin at present.
Code Status: Full
Anticipated Discharge: Today
Subjective/Interval History
-
Date of Service: February 09, 2025
Patient denies chest pain or shortness of breath
Objective Data
-
Vital Signs:
Vital Signs
Temp Pulse Resp BP Pulse Ox
97.6 F 68 16 120/72 98
02/09/25 07:00 02/09/25 07:00 02/09/25 07:00 02/09/25 07:00 02/09/25 07:00
I&O
02/08/25 02/09/25 02/10/25
06:59 06:59 06:59
Intake Total 1120 / 1120 878 / 878
Balance 1120 / 1120 878 / 878
--- NOTE | 2025-02-09 09:47 | W.DCSUMMARY ---
Discharge Summary
Discharge Data
Date of Admission: 02/07/25
Date of Discharge: 02/09/25
-
Pending Results: No
Hospital Course
Patient 54 years old male with history of hypertension, polysubstance abuse, incarcerated, came into the hospital with chest pain. Patient was initiated on ACS protocol and cardiology consulted. Patient also had GI evaluated him and GI recommended
PPI, sucralfate, and outpatient follow-up to consider elective EGD. Patient underwent cardiac catheterization and he was found to have nonobstructive coronary artery disease. Cardiology recommended medical management and cleared him for discharge.
He is medically cleared for incarceration today.
Discharge Plan
-
Patient Disposition: [facility]
Discharge Diagnosis/Procedures: Chest pain. Hypertension. Polysubstance abuse.
Diet: Low Cholesterol
Activity: As tolerated
Blood Work: Please PCP to order CBC, BMP within 1 to 2 weeks as appropriate
Referrals:
Primary care provider [Other] - in less than 1 week
Antony Martinez MD [Active, Gastroenterology]
Referral Note: 8-10 weeks for GERD with hiatal hernia
UNKNOWN - PT DOES,NOT KNOW [Family Provider]
Prescriptions:
New
sucralfate 1 gram Tablet
1 g PO BID 30 Days Qty: 60 0RF
pantoprazole 40 mg Tablet,Delayed Release (Dr/Ec)
40 mg PO BID 30 Days Qty: 60 0RF
atorvastatin [Lipitor] 10 mg tablet
10 mg PO HS Qty: 30 0RF
Continued
multivitamin Tablet
1 tab PO DAILY
cetirizine 10 mg Tablet
10 mg PO HS
hydroxyzine HCl 50 mg Tablet
50 mg PO TID
aspirin 81 mg Tablet,Delayed Release (Dr/Ec)
81 mg PO DAILY
amlodipine 10 mg Tablet
10 mg PO HS
mirtazapine 15 mg Tablet
15 mg PO HS
polyethylene glycol 3350 [Miralax] 17 gram/dose Powder
4 g PO DAILY PRN (Reason: constipation)
lisinopril 40 mg Tablet
40 mg PO DAILY
docusate sodium 100 mg Tablet
100 mg PO BID PRN (Reason: constipation)
buprenorphine HCl 8 mg Tablet, Sublingual
16 mg SUBLINGUAL DAILY
Discharge Orders:
Discharge Patient (As Directed); Ordered 02/09/25
Ordered By: Lonnie Jimenez
Discharge Date and Time
Print Language: LITHUANIAN
[2025-02-09 11:15] VITALS: BP 114/65
[2025-02-09 12:25] LABS: Glucose - Point of Care 85 mg/dl (70-99)
--- NOTE | 2025-02-09 13:19 | W.PN.CD ---
Today's Communication / Plan
-
Stable for discharge from a cardiac standpoint
Chest discomfort has improved. Chest discomfort was noncardiac no evidence of obstructive disease
Continue GI meds and treatment possible GERD as directed by primary team and GI
Limited limited activity with right wrist over the next week.
- Discussed importance of risk factor modification including treatment of smoking
Impression / Plan
-
Chest discomfort:
- Noncardiac chest pain. Would continue treatment for possible GI etiology management of GERD PPI etc. as per GI and primary team
- No evidence of obstructive coronary artery disease by cardiac catheterization
-patient with prolonged with normal trops. However, risk factors for CAD include- HTN, fam history, smoking, Coronary calcification on CT and Ct findings below
Possible mild aortic stenosis- echo 02/08/25 with normal LV function. Aorrtic valve with possible mild . Informed patient that he can have a follow-up echocardiogram in 2 to 3 years to reassess aortic valve
CAD. Patient with coronary calcification on CT cardiac catheterization.
L With no evidence of obstructive disease. Cardiac catheterization with mild diffuse disease. No cardiac cause of chest pain by catheterization.
- Right radial cath site is fine. Informed patient about limited activity over the next week
- Also discussed importance of risk factor modification including quitting smoking. Stressed importance of quitting.
- Could low-dose statin considering degree of calcification on CT and mild diffuse disease
- Additional follow-up with PCP for monitoring of blood pressure and cholesterol
HTN:
- Stable continue current therapy
Smoking:
- Importance of quitting
Hx drug abuse:
-remain drug free
-on meds
Physical Exam
Vital Signs/Labs
Vital Signs
Temp Pulse Resp BP Pulse Ox
97.8 F 77 16 114/65 96
02/09/25 11:15 02/09/25 11:15 02/09/25 11:15 02/09/25 11:15 02/09/25 11:15
02/08/25 02/09/25 02/10/25
06:59 06:59 06:59
Actual Weight 84.414 kg 84.538 kg
02/08/25 06:12
02/08/25 06:12
APTT Cancelled 02/08/25 19:40
Triglycerides 117 mg/dl (10-149) 02/08/25 06:12
LDL Cholesterol, Calc 98 mg/dl 02/08/25 06:12
VLDL Cholesterol, Calc 23 mg/dl (0-30) 02/08/25 06:12
HDL Cholesterol 46 mg/dl 02/08/25 06:12
02/06/25
23:45
Tmb-Z-[id number] Pept 46.3
LAB Results
02/06/25 02/07/25 02/08/25
23:45 02:25 06:12
Troponin I < 0.012 < 0.012 < 0.012
Physical Exam
Constitutional: No acute distress
Cardiovascular: Rhythm & rate is regular
Respiratory: Respiratory effort normal
GI: Soft and Non tender
Neuro/Psych: Alert
Data Reviewed
-
Date of Service: February 09, 2025
Medical Decision Making: Tests Ordered
Echo: Report Reviewed by me
Medical Tests (PFT, Pathology etc): Report Reviewed by me
Labs: Labs Reviewed by me
[2025-02-09 15:13] VITALS: BP 123/78
--- NOTE | 2025-02-09 15:42 | CM ---
Patient medically cleared for discharge to [facility] with no additional skilled services. Transported via [facility] guards and transport.
== END 2025-02-09 15:34 ==
LOC: 2 NORTH 06:07
PROVIDERS: Family Medicine; ADMITTING PHYSICIAN Hospitalist; ATTENDING PHYSICIAN Hospitalist; CONSULT PHYSICIAN Specialist; EMERGENCY PHYSICIAN Emergency Medicine; OTHER PHYSICIAN Internal Medicine Cardiovascular Disease
DX: R07.89 Other chest pain (principal); I10 Essential (primary) hypertension; K21.9 Gastro-esophageal reflux disease without esophagitis; I25.10 Atherosclerotic heart disease of native coronary artery without angina pectoris; G89.29 Other chronic pain; M54.50 Low back pain, unspecified; F15.10 Other stimulant abuse, uncomplicated; F17.200 Nicotine dependence, unspecified, uncomplicated; R09.02 Hypoxemia; F11.20 Opioid dependence, uncomplicated; D64.9 Anemia, unspecified; F32.A Depression, unspecified; N20.0 Calculus of kidney; F41.9 Anxiety disorder, unspecified; Z79.82 Long term (current) use of aspirin; Z79.899 Other long term (current) drug therapy; Z82.49 Family history of ischemic heart disease and other diseases of the circulatory system
CPT/HCPCS: 71275; 74174; 80048; 80053; 80061; 82962; 83036; 83880; 84484; 85025; 85027; 85730; 87070; 93005; 93306; 93458; 99152; 99153; C1769; C1894; G0378; Q9967

== ENCOUNTER 2025-06-30 19:14 | Emergency (ER) | payer OTHER, SELFPAY ==
[2025-06-30 19:16] VITALS: BMI 18.7
[2025-06-30 19:21] VITALS: BP 137/94
[2025-06-30 19:36] LABS: Hematocrit 37.3 % (39.0-52.0); Hemoglobin 13.2 g/dL (13.0-18.0); Mean Corp Hgb Conc. 35.4 g/dL (33.0-37.0); Mean Corpuscular Volume 85.2 fL (80.0-94.0); Nucleated Red Blood Cells % 0 % (-); Platelet Count 282 10^3/uL (130-400); Red Cell Dist. Width 12.0 % (11.5-14.5)
[2025-06-30 19:59] LABS: ALT (SGPT) 28 U/L (0-50); AST (SGOT) 37 U/L (17-59); Albumin 4.9 g/dl (3.5-5.0); Alkaline Phosphatase 65 U/L (38-126); Blood Urea Nitrogen 21 mg/dl (9-20); Calcium 9.8 mg/dl (8.4-10.2); Carbon Dioxide 25 mmol/L (22-30); Chloride 101 mmol/L (98-107); Estimated Creatinine Clearance 77 ml/min; Glucose 119 mg/dl (70-99); Potassium 4.8 mmol/L (3.5-5.1); Sodium 135 mmol/L (135-145); Total Protein 8.1 g/dl (6.3-8.2); eGFR > 60.00
[2025-06-30 20:00] VITALS: BP 103/79
[2025-06-30 20:05] LABS: Troponin I 0.016 ng/ml
[2025-06-30 21:00] VITALS: BP 138/82
[2025-06-30 22:16] VITALS: BP 144/85
[2025-06-30 22:53] LABS: Troponin I 0.021 ng/ml
[2025-06-30 23:00] VITALS: BP 151/78
--- NOTE | 2025-06-30 23:04 | ED.GENMED ---
History of Present Illness
General
Chief Complaint: Chest Pain
Source: patient
Time Seen by Provider: 06/30/25 19:56
History of Present Illness
History of Present Illness:
Note:
CHIEF COMPLAINT(S)
Chest pain after eating
HISTORY OF PRESENT ILLNESS
The patient is a 55-year-old male who presented with chest pain that started after eating. Pain is in the left upper chest and is sharp. The patient reported that the pain was less severe at the time of examination. The pain was not related to
movement or breathing and was a new experience for the patient, who has not previously had issues with similar foods. The patient denies any associated shortness of breath or abdominal pain. Upon physical examination, tenderness was noted in the
right upper quadrant of the abdomen. A small hernia was identified, which was not incarcerated and likely contained fat. Patient denies pleuritic pain. No hemoptysis. No leg swelling. No leg cramping. No injury.
PHYSICAL EXAM
General: Alert, no acute distress.
Skin: Warm, dry.
Head: Normocephalic, atraumatic.
Neck: Supple, trachea midline.
Eye Ears, Nose, Mouth and Throat: Oral mucosa moist.
Cardiovascular: Heart rate regular without murmurs. No edema.
Respiratory: Respirations are non-labored.
Gastrointestinal: Tenderness in the right upper quadrant; presence of a reducible hernia likely containing fat.
Back: Normal range of motion, normal alignment.
Musculoskeletal: Normal range of motion, normal strength.
Neurological: Alert and oriented to person, place, time, and situation. No focal neurological deficits observed.
Psychiatric: Cooperative, appropriate mood & affect.
PLAN
- Conduct a chest X-ray to evaluate the cause of chest pain.
- Assess gallbladder function due to concern of possible gallbladder-related origin of the pain.
DIFFERENTIAL DIAGNOSIS
The Differential Diagnosis includes, in no particular order and is not limited to:
1. Gastroesophageal reflux disease (GERD)
2. Peptic ulcer disease
3. Gallbladder disease (cholelithiasis or cholecystitis)
4. Hiatal hernia
5. Musculoskeletal pain
6. Angina
7. Acute coronary syndrome
8. Costochondritis
9. Esophageal spasm
10. Pancreatitis
EKG
My independent EKG interpretation is:
- Time of EKG: Not specified
- Rhythm: Normal size rhythm
- Heart rate: 88 bpm
- [place]: Normal
- Intervals: Normal
- ST segment/T wave: Non-specific STTA changes
- Comparisons: No growth changes compared to January 2025 EKG
CARE-UPDATE
06/30/25 - 23:05
Catheterization reviewed from January 2025 indicates non-obstructive coronary disease in a right dominant system. LV filling pressure was normal with no significant gradient across the aortic valve. No changes in coronary anatomy or valve function
since the procedure. Treatment plan continues to focus on medical management of coronary artery disease with regular follow-ups for monitoring.
Disposition:
SUMMARY OF ENCOUNTER
The patient is a 55-year-old male who presented with chest pain that started after eating earlier in the afternoon. Troponin levels were checked twice and were negative. The EKG showed no changes. A previous cardiac catheterization from January
indicated non-obstructive coronary disease. The patient exhibited no signs of tachycardia, hypoxia, tachypnea, or shortness of breath, which could suggest a pulmonary embolism. A chest x-ray and ultrasound of the gallbladder returned normal results.
Liver function tests, BNP, and chemistry panels were normal, as was the CBC. Based on these findings, the patient is deemed safe for discharge with outpatient follow-up.
DISPOSITION
Discharge
ASSESSMENT
The patients chest pain is assessed to be non-cardiac in origin, given the negative troponin results, stable EKG, and normal cardiac catheterization history.
PLAN
- Discharge the patient with instructions for follow-up care.
- Refer the patient to an online chest pain follow-up service for further monitoring.
INDEPENDENT REVIEW OF LABS AND INTERPRETATION OF TESTS
- My independent review of the troponin tests indicates negative results.
- My independent EKG interpretation shows no changes.
- My independent review of the chest x-ray shows normal findings.
- My independent review of the ultrasound gallbladder is normal.
- My independent review of LFTs, BNP, chemistry, and CBC indicates normal results.
FOLLOW-UP INSTRUCTIONS
The patient will be referred to an online chest pain follow-up service for continued monitoring.
MEDICAL DECISION MAKING
- Complexity of Data Reviewed: Chronic conditions affecting care include the history of coronary artery disease.
DDX list includes:
1. Gastroesophageal reflux disease (GERD)
2. Peptic ulcer disease
3. Gallbladder disease (cholelithiasis or cholecystitis)
4. Hiatal hernia
5. Musculoskeletal pain
6. Angina
7. Acute coronary syndrome
8. Costochondritis
9. Esophageal spasm
10. Pancreatitis
- Data:
Category 1
- My independent interpretation of the EKG showed no changes.
- My independent interpretation of the chest x-ray and ultrasound results both returned normal findings.
- Risk:
Consideration of Admission/Observation: Escalation of care including admission/observation was considered given the complexity and risk of the patients presenting complaint, exam findings, and/or their underlying comorbidities. However, ultimately I
feel the patient is safe for outpatient management with close follow-up. Reasoning: Work-up reassuring, does not reveal any acute life/organ threatening processes, patients symptoms well-controlled upon reevaluation, reexamination is reassuring,
vitals are stable, patient agreeable with discharge, reliable for follow-up.
DIAGNOSIS
- Non-cardiac chest pain, ICD-10: R07.2
Past History
Past History
ED Past Medical History: HTN and Other (Chronic low back pain)
ED Past Surgical History: Other
Social History
Tobacco: Smoker
Alcohol: Occasional
Drug: Other (Methamphetamine, fentanyl)
Personal: Other
Living: [facility]
Employment: Other
Family History
Family History: Other
Phy Exam
Physical Exam
Physical Exam:
.
Scores
Heart Score for Chest Pain Patients
STEMI patient?: No
History: Slightly or Non-Suspicious
ECG: Nonspecific Repolarization
Age: >45 - <65 years
Risk Factors: 1 or 2 Risk Factors
Troponin: </= Normal Limit
Heart Score for Chest Pain Patients: 3
Heart Score Risk: 2.5% MACE over next 6 weeks
Course
Orders/Labs/Results
Orders:
Orders
06/30/25 19:20
Electrocardiogram (*1) Urgent
Reason for Study: Chest Pain
EKG- Treatment ONCE
06/30/25 19:29
Complete Blood Count/With Diff Urgent
Comprehensive Metabolic Panel Urgent
NT-proBNP Urgent
Troponin I Urgent
06/30/25 20:17
US Abdomen Complete/Upper Urgent
Comment:
Reason For Exam: epigastric pain after eating
06/30/25 20:18
CR Chest - 2 Views Urgent
Comment:
Reason For Exam: L CP
06/30/25 20:19
EKG- Treatment ONCE
06/30/25 22:17
Troponin I Urgent
06/30/25 22:20
Electrocardiogram (*1) Urgent
Reason for Study: Chest Pain
Abnormal Lab Results
06/30/25
19:29
RBC 4.38 L 10^6/uL
(4.70-6.10)
Hct 37.3 L %
(39.0-52.0)
Absolute Neuts (auto) 8.1 H 10^3/uL
(1.4-6.5)
Absolute Lymphs (auto) 1.1 L 10^3/uL
(1.2-3.4)
Neutrophils % 82.2 H %
(42.2-75.2)
Lymphocytes % 11.6 L %
(20.5-51.1)
BUN 21 H mg/dl
(9-20)
Glucose 119 H mg/dl
(70-99)
06/30/25 19:29
06/30/25 19:29
Vital Signs
Initial and Last Documented VS:
Initial Vital Signs
Temp Pulse Resp Pulse Ox
98.1 F 106 18 93
06/30/25 19:17 06/30/25 19:17 06/30/25 19:17 06/30/25 19:17
Last Documented Vital Signs
Temp Pulse Resp BP Pulse Ox
98.1 F 87 14 144/85 94
06/30/25 19:17 06/30/25 22:16 06/30/25 22:16 06/30/25 22:16 06/30/25 22:15
*Pulse Oximetry
SaO2: 95
Oxygen Mode of Delivery: Room air
Patient hypoxic: no
*Help Desk Agent Interpretation
Rate: normal
Interpretation: normal
Rhythm: sinus
*Critical Care Note
Total Time (30-74mins, 75-104mins- exclusive of procedures): Not Applicable
Data Reviewed
Source: patient
ED Attending Note
-
Portions of this chart may have been created with voice recognition software.� Occasional wrong word or��sound alike� substitutions may have occurred due to the inherent limitations of voice recognition software.
Discharge Plan
Departure
Patient Disposition: Home (Routine Discharge)
Date of Disposition: 06/30/25
Time of Disposition: 23:06
Patient with high blood pressure during this ER visit?: Yes
Discharge Problem:
Chest pain
Instructions: BLOOD PRESSURE, Chest Pain CBC Follow Up
Prescriptions:
No Action
cetirizine 10 mg Tablet
10 mg PO HS
aspirin 81 mg Tablet,Delayed Release (Dr/Ec)
81 mg PO DAILY
mirtazapine 15 mg Tablet
30 mg PO HS
polyethylene glycol 3350 [Miralax] 17 gram/dose Powder
4 g PO DAILY PRN (Reason: constipation)
lisinopril 40 mg Tablet
40 mg PO DAILY
docusate sodium 100 mg Tablet
100 mg PO BID PRN (Reason: constipation)
buprenorphine HCl 8 mg Tablet, Sublingual
16 mg SUBLINGUAL DAILY
pantoprazole 40 mg Tablet,Delayed Release (Dr/Ec)
40 mg PO BID 30 Days Qty: 60 0RF
atorvastatin [Lipitor] 10 mg tablet
10 mg PO HS Qty: 30 0RF
furosemide 20 mg Tablet
20 mg PO DAILY
Referrals:
[facility] [Family Provider, General]
Activity Restrictions/Additional Instructions:
Please avoid strenuous or exertional activity until cleared by cardiology. Cardiology has been notified and a follow up appointment has been requested. Someone will call you on the next business day to schedule a follow up appointment.
Return immediately for fevers, shortness of breath, worsening symptoms or any other concerns.
Interventions
Interventions:
*Risk Screen - Suicide Last Done: 06/30/25 19:22
*General Assessment Last Done: 06/30/25 19:22
*Neglect/Abuse Screening Last Done: 06/30/25 19:22
*ED COVID-19 Vaccine History Last Done: 06/30/25 19:21
*ED Influenza Vaccine History Last Done: 06/30/25 19:21
[facility] Fall Risk Assessment Tool Last Done: 06/30/25 19:21
ED- Cardiac Assessment Last Done: 06/30/25 19:24
Discharge Date and Time
Print Language: POLISH
== END 2025-06-30 23:37 | disposition home or self-care (01) ==
LOC: EMR 19:14
PROVIDERS: EMERGENCY PHYSICIAN Emergency Medicine
DX: R07.89 Other chest pain (principal); I10 Essential (primary) hypertension; G89.29 Other chronic pain; F17.200 Nicotine dependence, unspecified, uncomplicated
CPT/HCPCS: 99285; 71046; 76700; 80053; 83880; 84484; 85025; 93005